=== PATIENT | male | born 1955 | race Caucasian/White ===

== ENCOUNTER 2017-12-06 12:09 | Emergency (ER) | payer SELFPAY ==
[2017-12-06 12:11] VITALS: BP 131/66; PULSE 99; RESP 16; TEMP 35.7; O2SAT 96; BMI 22.4
--- NOTE | 2017-12-06 12:41 | RAD_ITS ---
STUDY: X-RAY - PELVIS AND RIGHT HIP REASON FOR EXAM: Male, 62 years old. One month history of increasing right hip pain. TECHNIQUE: Radiological exam, hip, unilateral, with pelvis when performed; 2 or 3 views. COMPARISON: None. FINDINGS: There is a non-specific bowel gas pattern. Normal visualized soft tissue structures. Normal bilateral iliac wings, sacroiliac joints and visualized sacrum. Normal bilateral superior and inferior pubic rami. Normal pubic symphysis. Normal bilateral ischial tuberosities. Normal visualized femoral head. Normal acetabulum. There is moderate articular joint space narrowing of the hip. RAD/Hip 2-3 Views with Pelvis IMPRESSION: Moderate degree of degenerative changes of the right hip joint. Electronically Signed: Merlin Hudson MD at 13:26 EDT Tel [phone], Service support ,
--- NOTE | 2017-12-06 15:27 | ED.VISSUMM ---
- ER Visit Summary Date of Service: 12/06/17 Chief Complaint: Worsening right proximal anterior thigh pain/hip pain History of Present Illness: The patient is a 62 M has no significant past medical history presents with atraumatic right hip pain that started 1 month ago. He localizes the pain to the inguinal area. He states the pain is significant when he bears weight. He denies any paresthesia, anesthesia or motor weakness. He denies symptoms of claudication. He denies any radicular pain i.e. sciatic or femoral. He denies any bowel or bladder dysfunction. He denies saddle paresthesia or anesthesia. There is no history of steroid use. He denies foot drop. He denies weakness in his thigh muscle going up or down steps. He recently retired and moved from [place] to [place] to be with his daughter. He does not have a physician in the area. He is a smoker. He states he smokes 1 pack per day. He denies fever, chills night sweats. He denies weight loss or weight gain. He denies pain anyplace else. Please read written note for complete detail Physical Examination: Blood pressure slightly related 131/66. HEENT exam unremarkable. Heart is regular without murmur, gallop or rub. Lungs are clear to auscultation. Abdomen is soft nontender no palpable mass or abdominal bruit. He has palpable femoral, DP and PT pulse which are 2+ and symmetric. Straight leg test is negative. He is able to extend his leg without discomfort. Dejon Raúl 4 test was negative for discomfort. EHL is intact. DTR is 3+ symmetric with no clonus or Babinski sign. Test Results: Three-view x-ray of the right hip was obtained which reveals significant arthritis involving the right femoral head. The left hip joint appears normal. Emergency Department Course and Treatment: X-ray was obtained to evaluate for osteoarthritis, avascular necrosis or occult fracture. Treatment Plan: Patient was prescribed NSAID and opiate analgesia for severe pain. He was referred to Dr. Rubin who is on-call for orthopedics. Disposition: Charge to home with daughter and outpatient orthopedic referral Impression: Right hip pain secondary to osteoarthritis/degenerative arthritis right femoral head initial encounter This note was generated with ProcessUnity dictation software. It may contain incorrect words, spelling, and punctuation that were not noted in review of the chart prior to signing ED Disposition - Plan for ED Patient: Disposition: Home or Assisted Living Chief Complaint: Lower Extremity Injury Instructions: ED Degenerative Joint Disease Prescriptions: Hydrocodone Bitart/Apap 5-325 [[place] 5MG-325MG] 1 tab PO Q6H PRN PRN 3 Days #10 tab PRN Reason: Pain Naproxen [Naprosyn] 500 mg PO BID #20 tab Additional Instructions: Call Dr. Rubin's office to be seen in 5-7 days
--- NOTE | 2017-12-06 15:38 | ED.DCSUM_ITS ---
- ER Visit Summary Date of Service: 12/06/17 Chief Complaint: Worsening right proximal anterior thigh pain/hip pain History of Present Illness: The patient is a 62 M has no significant past medical history presents with atraumatic right hip pain that started 1 month ago. He localizes the pain to the inguinal area. He states the pain is significant when he bears weight. He denies any paresthesia, anesthesia or motor weakness. He denies symptoms of claudication. He denies any radicular pain i.e. sciatic or femoral. He denies any bowel or bladder dysfunction. He denies saddle paresthesia or anesthesia. There is no history of steroid use. He denies foot drop. He denies weakness in his thigh muscle going up or down steps. He recently retired and moved from [place] to [place] to be with his daughter. He does not have a physician in the area. He is a smoker. He states he smokes 1 pack per day. He denies fever, chills night sweats. He denies weight loss or weight gain. He denies pain anyplace else. Please read written note for complete detail Physical Examination: Blood pressure slightly related 131/66. HEENT exam unremarkable. Heart is regular without murmur, gallop or rub. Lungs are clear to auscultation. Abdomen is soft nontender no palpable mass or abdominal bruit. He has palpable femoral, DP and PT pulse which are 2+ and symmetric. Straight leg test is negative. He is able to extend his leg without discomfort. Dejon Raúl 4 test was negative for discomfort. EHL is intact. DTR is 3+ symmetric with no clonus or Babinski sign. Test Results: Three-view x-ray of the right hip was obtained which reveals significant arthritis involving the right femoral head. The left hip joint appears normal. Emergency Department Course and Treatment: X-ray was obtained to evaluate for osteoarthritis, avascular necrosis or occult fracture. Treatment Plan: Patient was prescribed NSAID and opiate analgesia for severe pain. He was referred to Dr. Rubin who is on-call for orthopedics. Disposition: Charge to home with daughter and outpatient orthopedic referral Impression: Right hip pain secondary to osteoarthritis/degenerative arthritis right femoral head initial encounter This note was generated with DCITS dictation software. It may contain incorrect words, spelling, and punctuation that were not noted in review of the chart prior to signing ED Disposition - Plan for ED Patient: Disposition: Home or Assisted Living Chief Complaint: Lower Extremity Injury Instructions: ED Degenerative Joint Disease Prescriptions: Hydrocodone Bitart/Apap 5-325 [[place] 5MG-325MG] 1 tab PO Q6H PRN PRN 3 Days #10 tab PRN Reason: Pain Naproxen [Naprosyn] 500 mg PO BID #20 tab Additional Instructions: Call Dr. Rubin's office to be seen in 5-7 days
[2017-12-06 15:52] VITALS: PULSE 88; RESP 14; O2SAT 96
--- NOTE | 2017-12-06 15:55 | CASEMGMT ---
Social Work Note Updated by RNKali, that pt was concerned about payment for orthopedic follow-up. RNMarcel, informed that pt and family were leaving. Introduced self and role at [facility]. Pt's daughter stating that they need to go to cone picker a child from school. Offer to walk out with them. Pt states that he is retired and uninsured. Does have money in his ROBERTO which is what he is living off of. Provided with a Medicaid application and informed if he financially qualifies it would be retroactive 30 days prior to its submission. Also provided with information on [facility] in [place] and [facility] locations with [facility] financial application attached. Pt thanks and denies additional needs at this time. Provided with SW contact information in case questions arise. Tata Frank, GRAIN ELEVATOR MAN, SENIOR PRODUCTION PLANNER
== END 2017-12-06 15:53 | disposition home or self-care (01) ==
PROVIDERS: Emergency Provider Emergency Medicine
DX: M16.11 Unilateral primary osteoarthritis, right hip (principal); M25.551 Pain in right hip; F17.200 Nicotine dependence, unspecified, uncomplicated
CPT/HCPCS: 73502; 99282

== ENCOUNTER → 2018-03-16 15:00 | Outpatient (CLI) | payer SELFPAY ==
--- NOTE | 2018-03-16 | IMM_PTH ---
PATIENT: KAILEY MARINA LOC: PATRIC U#:[id number] AGE/SX: 69/M ROOM: RE03/16/[address]: Dr. Babar Hernández, CHRISTINA : 1955 BED: DIS: SPEC #: [id number] RECD: 03/20/18 09:55 STATUS: FAN REIdalia #: [id number] QUYEN: 03/16/18 00:[address]: Babar Hernández DEPT: IMMUNOHISTOCHEMISTRY RECD BY: Maye Mcginnis ENTERED: 03/20/18 09:58 SP TYPE: IMMUNO OTHR DR: No Primary Care Phys Tissues: Buccal mucosa, NOS Procedures: RCC (add) SMA (add) NAPSIN A (add) CD45 (add) CK20 (add) CK5-6 (add) CK7 (add) CK8 (add) DESMIN (add) HEP PAR (add) PSA (add) TTF1 (add) Pankeratin (add) MELAN-A (add) P40 (add) Vimentin (initial) S-100 (add) PHYSICIAN & [place] [phone] SPECIMEN INFORMATION: Tissue Source: Right cheek Clinical Info: Rule out SCCA Specimen Number: [id number] CPT code: 19541, 13250 x16 METHODOLOGY: Deparaffinized sections of prefer/formalin-fixed tissue or PAP/DQ stained slides are incubated with monoclonal/polyclonal antibodies/oligonucleotide probes. Localization is made via biotin free immunoperoxidase method. Appropriate controls are performed and reacted as expected. Results on target cell population are indicated in the following table: RESULTS: ANTIBODY / CLONE RESULT Vimentin (V9) positive Actin (1A4) negative Desmin (CE-R-11) negative S-100 (4C4.9) negative Melan A (A103) negative AE1-3 (AE1/AE3/PCK26) positive CK7 (OV-TL12/30) negative CK8 (02rikqX96) positive, focal CK20 (KS20.8) negative CD45 (RP2/18) negative TTF-1 (8G7G3/1) negative Napsin A (Rabbit Polyclonal) negative HepPar (OCh1E5) negative RCC (PN-15) negative PSA (ER-PR8) negative CK5-6 (D5 & 1684) negative P40 (BC28) negative These tests were developed and their performance characteristics determined by [facility]. They may not have been cleared or approved by the U.S. Food and Drug Administration. The FDA has determined that such clearance or approval is not necessary. INTERPRETATION: Right cheek lesion, incisional biopsy: Metastatic carcinoma with clear cell features, suggestive of renal cell carcinoma. SJ:wilber 04/04/18 Comment: The specimen was sent to [facility] for expert opinion and reviewed by Dr. Quinn. Additional immunohistochemical stains were also performed at performed at [facility]. IHC favors the above diagnosis. Case has been reviewed in consultation with Dr. Martin who concurs with the above diagnosis. IDC:AM
--- NOTE | 2018-03-16 15:00 | LES_PTH ---
PATIENT: KAILEY MARINA LOC: PATRIC U#:[id number] AGE/SX: 69/M ROOM: RE03/16/[address]: Dr. Babar Hernández DDS : 1955 BED: DIS: SPEC #: [id number] RECD: 03/16/18 15:48 STATUS: FAN SHAUN #: [id number] QUYEN: 03/16/18 15:[address]: Babar Hernández DEPT: SURGICAL PATHOLOGY RECD BY: Maye Mcginnis ENTERED: 03/17/18 14:54 SP TYPE: Lesion OTHR DR: No Primary Care Phys Tissues: Cheek, NOS Procedures: Surgery Specimen Level IV HEADER OPERATION: Biopsy right cheek PRE-OP DIAGNOSIS: Patient states two-week history. This appears very aggressive. Measures 3 cm in diameter. Rule out SCCA TISSUE SUBMITTED: Incisional biopsy right cheek MICROSCOPIC DIAGNOSIS Right cheek lesion, incisional biopsy: Metastatic carcinoma with clear cell features, suggestive of renal cell carcinoma. See comment. KI:wilber 04/04/18 COMMENT The specimen was sent to [facility] for expert opinion and reviewed by Dr. Quinn and the above diagnosis is rendered. The complete report is viewable in patient?s EMR. Immunohistochemistry ([id number]) performed here and additional immunohistochemical stains performed at [facility] supports the above diagnosis. Case has been reviewed in consultation with Dr. Martin who concurs with the above diagnosis. IDC:AM MICROSCOPIC DESCRIPTION Slides are reviewed. GROSS DESCRIPTION Received in fixative is one container labeled with the patient's name and designated buccal cheek right. The specimen consists of two pieces of obrien soft tissue that in aggregate measure 1.5 x 1.2 x 0.3 cm. The entire specimen is submitted in one cassette. / KI:wilber 03/17/18 TC:0 CPT: 88134 ADDENDUM ADDENDUM ADDENDUM ADDENDUM ADDENDUM ADDENDUM ADDENDUM ADDENDUM ADDENDUM ADDENDUM 04/17/2018 10:10 ADDENDUM 04/17/2018 10:10 ADDENDUM 04/17/2018 10:10 ADDENDUM 04/17/2018 10:10 ADDENDUM 04/17/2018 10:10 This addendum is added to incorporate an outside pathology consultation report. The case was examined at [facility] (#[id number]) and the following diagnosis was rendered. Right cheek, biopsy: Carcinoma with clear cell features, consistent with metastatic renal cell carcinoma. Please see complete above mentioned consultation report in EMR
== END ==
PROVIDERS: Visit Provider Dentist Oral and Maxillofacial Surgery
DX: L98.8 Other specified disorders of the skin and subcutaneous tissue (principal)
CPT/HCPCS: 88305; 88341; 88342

== ENCOUNTER 2018-05-04 14:45 | Emergency (ER) | payer MEDICAID, SELFPAY ==
[2018-05-04 14:46] VITALS: BP 117/75; PULSE 127; RESP 18; TEMP 38.3; O2SAT 97
--- NOTE | 2018-05-04 15:40 | ED.VISSUMM ---
- ER Visit Summary Date of Service: 05/04/18 Chief Complaint: Fever History of Present Illness: The patient is a 62 M history of renal CA with metastases to his brain, mouth, lung and bone. Patient states felt very fatigued the last 2 days and had a fever. Runny nose. No shortness of breath. Denies abdominal pain. Denies dysuria. No rashes. Physical Examination: Older male vital signs stable he is febrile 1011 with a heart rate of 127. HEENT exam mucous membranes. He does have a large mouth on the left side roof of his mouth. He also has a swollen lymphadenopathy which is chronic from his cancer. Neck no meningismus. Trachea midline. Lungs clear to auscultation bilaterally. Heart tachycardic no murmur. Abdomen soft nontender. Moving all 4 extremities. Neurologically awake alert no focal motor deficits. Back nontender. Skin unremarkable. Test Results: BC white count of 5. H&H of 13 and 41. And 44,000 platelets. Electrolytes show BUN 28 creatinine 0.9 consistent with mild dehydration. Anion gap is 6. UA was negative except for 1+ bacteria. It was sent for culture. Blood cultures are pending. Chest x-ray read by myself the radiologist shows no acute abnormality. Emergency Department Course and Treatment: Older male with fever and immunosuppressed from renal CA with metastases. Received IV fluids and Tylenol. An infectious workup will be pursued. Treatment Plan: Repeat exam patient is doing well at 2026. Will be discharged to home with fever of uncertain etiology. He will follow up with a local oncologist from the [facility]. He knows return if worse. Disposition: Discharge Impression: Acute fever of uncertain etiology History of known renal CA with extensive metastases. This note was generated with Bitstrips dictation software. It may contain incorrect words, spelling, and punctuation that were not noted in review of the chart prior to signing ED Disposition - Plan for ED Patient: Chief Complaint: Cold Sx Referrals: Care Physician,No Primary [Primary Care Provider] -
[2018-05-04 16:12] LABS: Absolute Lymphocyte Count 0.65 X10^3/ul (0.83-4.51); Absolute Neutrophil Count 4.3 X10^3/uL (2.0-7.7); Basophil# 0.01 X10^3/uL; Basophil% 0.2 % (0-1); Eosinophil# 0.02 X10^3/uL; Eosinophils% 0.4 % (0-5); Hematocrit 41.2 % (40-54); Hemoglobin 13.8 g/dl (13.0-16.5); Lymphocyte # 0.65 X10^3/ul (4.0); Lymphocyte % 11.7 % (19-41); Mean Corp Hgb Conc 33.5 g/gl (32-36); Mean Corpuscular Hgb 30.9 pg (27.0-32.0); Mean Corpuscular Volume 92.2 fL (80-94); Mean Platelet Vol. 10.4 fl (6.2-12.0); Monocyte# 0.53 X10^3/uL; Monocyte% 9.6 % (0-10); Neutrophil % 77.6 % (47-70); Platelet Count 144 K/mm3 (150-450); RBC Distribution Width CV 14.1 % (11.6-14.6); RBC Distribution Width SD 46.4 fl (35.1-43.9); Red Blood Count 4.47 M/mm3 (4.6-6.2); White Blood Count 5.5 K/mm3 (4.4-11.0)
[2018-05-04 16:15] LABS: POSITIVE COUNT NO; POSITIVE DIFFERENTIAL NO; POSITIVE MORPHOLOGY NO
[2018-05-04] MEDS: Acetaminophen 500 MG Tablet 1000 MG PO (16:22)
[2018-05-04] MEDS: 0.9% Normal Saline 1,000 ML 1000 ML IV (16:23)
[2018-05-04 16:33] LABS: Anion Gap 6 (5-15); BUN 28 mg/dL (7-18); BUN/Creat Ratio 29.7 RATIO (10-20); Calcium,Total 10.6 mg/dL (8.5-10.1); Chloride 97 mmol/L (98-107); Creatinine, Serum 0.94 mg/dL (0.70-1.30); EST Glomerular Filtration Rate 86 mL/min (>60); Est Glom Filt Rate - Afr Amer 104 mL/min (>60); Estimated Creatinine Clearance 72.95 ml/min; Glucose 85 mg/dL (74-106); Potassium 4.5 mmol/L (3.5-5.1); Sodium Level 136 mmol/L (136-145)
[2018-05-04 16:55] LABS: Mucous, Urine 0 SEEN /hpf (<or=2+); White Blood Cells 0 SEEN /hpf (0-5)
[2018-05-04 17:20] LABS: Color, Urine Yellow (Yellow); Glucose, Dipstick Normal (Normal); Ketone-Dipstick Negative (Negative); Leukocyte Esterase-Dipstick Negative /ul (Negative); Nitrite-Dipstick Negative (Negative); Occult Blood-Urine 25 /ul (Negative); Protein-Dipstick 30 mg/dl (Negative); Urine Bilirubin Dipstick Negative (Negative); Urine Clarity Clear (Clear); Urine Urobilinogen 4 mg/dl (Normal)
[2018-05-04 17:34] LABS: Bacteria 1+ /hpf (None Seen); Red Blood Cells-Urine 5-10 SEEN /hpf (0-5); Squamous Epithelial Cells - UA 0-5 SEEN /hpf (0-5)
[2018-05-04 19:14] VITALS: BP 110/78; PULSE 105; RESP 14; O2SAT 98
--- NOTE | 2018-05-04 20:30 | ED.DEP ---
ED Disposition - Plan for ED Patient: Disposition: Home or Assisted Living Chief Complaint: Cold Sx Instructions: ED Upper Resp Infec No Abx Tx Referrals: Jos Crzu DO [STAFF PHYSICIAN] - As soon as possible Additional Instructions: Alternate Tylenol and Motrin for fever. Plenty of fluids and rest. Return to the ER if you are feeling worse. Otherwise either follow-up with your oncologist at the [facility] or with Dr. Jos Cruz locally.
--- NOTE | 2018-05-04 20:33 | DCINST.ED_ITS ---
ED Disposition - Plan for ED Patient: Disposition: Home or Assisted Living Chief Complaint: Cold Sx Instructions: ED Upper Resp Infec No Abx Tx Referrals: Jos Cruz DO [STAFF PHYSICIAN] - As soon as possible Additional Instructions: Alternate Tylenol and Motrin for fever. Plenty of fluids and rest. Return to the ER if you are feeling worse. Otherwise either follow-up with your oncologist at the [facility] or with Dr. Jos Cruz locally.
[2018-05-04 21:03] VITALS: PULSE 98; RESP 18; O2SAT 96
== END 2018-05-04 20:50 | disposition home or self-care (01) ==
PROVIDERS: Emergency Provider Emergency Medicine
DX: R50.9 Fever, unspecified (principal); C64.9 Malignant neoplasm of unspecified kidney, except renal pelvis; C78.00 Secondary malignant neoplasm of unspecified lung; C79.51 Secondary malignant neoplasm of bone; C79.89 Secondary malignant neoplasm of other specified sites; Z72.0 Tobacco use; Z79.891 Long term (current) use of opiate analgesic; Z79.899 Other long term (current) drug therapy
CPT/HCPCS: 71046; 80048; 81001; 85025; 87040; 87086; 87088; 96360; 96361; 99284; J7030; A4216

== ENCOUNTER 2018-05-12 07:50 | Emergency (ER) | payer MEDICAID, SELFPAY ==
[2018-05-12 07:50] VITALS: BP 112/68; PULSE 90; RESP 16; TEMP 36.9; O2SAT 93
--- NOTE | 2018-05-12 07:54 | CT_ITS ---
STUDY: CT BRAIN WITHOUT CONTRAST REASON FOR EXAM: Male, 62 years old. History of fall. Right arm weakness. History renal cell carcinoma. RADIATION DOSAGE (If Supplied By Facility): CTDIvol = ( 44.99 ) mGy, DLP = ( 829.85 ) mGycm TECHNIQUE: Transaxial CT imaging of the brain was performed without administration of intravenous contrast material. Individualized dose optimization techniques were used for this CT. COMPARISON: None. FINDINGS: Normal soft tissue structures. Normal calvarium. There is edema involving the medial aspects of the right and left frontal lobes as well as the left parietal occipital lobe and right frontoparietal lobe with mass effect. Focal hypodensity seen along the medial aspect of the right occipital lobe. Findings are in keeping with metastatic disease. A repeat CT scan following IV contrast or MRI scan is recommended for further evaluation. Normal basal ganglia and thalami. Normal brainstem. Normal cerebellum. There is no intracranial hemorrhage. There are no findings of an acute ischemic infarction. Soft tissue opacification and mass of the left maxillary sinus with destruction of the lateral wall of the left maxillary sinus and partial destruction of the medial wall. The mass extends into the left ethmoid sinus. The mass also extends into the inferior aspect of the left temporal fossa with underlying bony destruction. Mucosal thickening of the right maxillary sinus. CT/Brain/Head without Contrast IMPRESSION: Multiple findings as described. Findings suggestive of metastatic disease. A repeat CT scan with IV contrast or MRI is recommended for further evaluation. Electronically Signed: Merlin Hudson MD at 9:21 EDT Tel [phone], Service support ,
--- NOTE | 2018-05-12 07:55 | EKG12_ITS ---
Test Reason : FALL Blood Pressure : / mmHG Vent. Rate : 102 BPM Atrial Rate : 102 BPM P-R Int : 148 ms QRS Dur : 088 ms QT Int : 320 ms P-R-T Axes : 067 022 057 degrees QTc Int : 417 ms Sinus tachycardia Otherwise normal ECG Confirmed by GHANSHYAM JOHNSON, DAGOBERTO ([id number]), research editor VADIM PAREDES ([id number]) on 05/15/2018 3:09:47 PM Referred By: JAZMYNE Confirmed By:DAGOBERTO MORRISSEY MD
--- NOTE | 2018-05-12 07:59 | ED.DCSUM_ITS ---
- ER Visit Summary Date of Service: 05/12/18 Chief Complaint: Fall, weakness History of Present Illness: The patient is a 62 M with history of metastatic renal cell carcinoma presents to the emergency department with fall and weakness. Patient has history of renal cell carcinoma. He has metastasis to the face of the brain. He is currently undergoing therapy through the [facility]. Over the past few days, he has had some increasing numbness in his right arm. Today, he states that his right arm felt clumsy. He was sitting on the toilet. He states that he felt cannot remember the exact circumstances. He did strike his head. He states he did not lose consciousness. He denies any chest pain or shortness of breath. He denies any fevers or chills. He has had no recent infectious symptoms. He denies any recent change in medications. He denies any history of seizure. Physical Examination: Vital signs reviewed General: Thin male who appears older than stated age Head: Normocephalic, superficial abrasions of the forehead bilaterally Eyes: Pupils equal and reactive, extraocular muscles intact Neck, supple, no lymphadenopathy Heart: Regular rate and rhythm Respiratory: No distress, clear bilaterally Abdomen: Soft, nontender, nondistended, no peritoneal signs Back: Nontender Extremities: Nontender, no edema, no cords Skin: Normal color no rash Neuro: Asymmetry of the face, ataxia of the right upper extremity Test Results: [] Emergency Department Course and Treatment: The patient presents with increasing weakness and a fall. He does have asymmetry of his face secondary to mass in the right cheek. He also has a left-sided facial droop, which in discussion with his caregiver is chronic. The patient was just recently discharged from the [facility]. He did have immunotherapy done yesterday and was actually seen by his oncologist. Per his caregiver, he has been increasingly weak since his discharge. He is to the point where he cannot even lift his arms to feed himself or to drink. He had a fall today, but does not think that was syncopal. Given his head injury, I did obtain a noncontrast CT. The patient has multiple metastatic areas with cerebral edema and mass-effect. I did discuss this with his oncologist. He did recommend Decadron which the patient was already given. Given his worsening cerebral edema, ataxia, and multiple falls along with his increasing weakness I do feel that this patient is going to require higher level of care. At discretion of his oncologist, he will be transferred to the [facility] for further evaluation. The patient was accepted by Dr. Alvarez for oncology. He will be transferred to [facility]. Treatment Plan: [] Disposition: Transfer Impression: 1 renal cell carcinoma with brain metastasis 2. Cerebral edema 3. Weakness with falls This note was generated with Arke[employer] dictation software. It may contain incorrect words, spelling, and punctuation that were not noted in review of the chart prior to signing ED Disposition - Plan for ED Patient: Chief Complaint: Fall Referrals: Care Physician,No Primary [Primary Care Provider] -
--- NOTE | 2018-05-12 08:00 | RAD_ITS ---
STUDY: X-RAY CHEST REASON FOR EXAM: Male, 62 years old. Cough. TECHNIQUE: Single AP portable view of the chest. COMPARISON: Comparison is made with prior study dated May 04, 2018. FINDINGS: EKG electrodes are seen. Hyperinflation. No acute abnormality is seen. There is no demonstrated pleural abnormality. Normal size heart. Normal mediastinum and zayda. Normal visualized pulmonary arteries. There is atherosclerotic calcification of the aortic arch with tortuosity. There are diffuse degenerative changes of the visualized thoracic spine. Normal visualized ribs, clavicles, and shoulders. There is no demonstrated abnormality of the visualized soft tissue structures of the upper abdomen. RAD/Chest 1 View (Portable) IMPRESSION: No acute abnormality is seen. Electronically Signed: Merlin Hudson MD at 8:28 EDT Tel [phone], Service support ,
--- NOTE | 2018-05-12 08:01 | NURSING ---
NO OLD EKGS
[2018-05-12 08:37] LABS: Absolute Lymphocyte Count 0.56 X10^3/ul (0.83-4.51); Absolute Neutrophil Count 6.2 X10^3/uL (2.0-7.7); Basophil# 0.01 X10^3/uL; Basophil% 0.1 % (0-1); Differential Indicated SCAN CRITERIA MET; Eosinophil# 0.02 X10^3/uL; Eosinophils% 0.3 % (0-5); Hematocrit 32.6 % (40-54); Hemoglobin 10.7 g/dl (13.0-16.5); Lymphocyte # 0.56 X10^3/ul (4.0); Lymphocyte % 7.7 % (19-41); Mean Corp Hgb Conc 32.8 g/gl (32-36); Mean Corpuscular Hgb 29.5 pg (27.0-32.0); Mean Corpuscular Volume 89.8 fL (80-94); Mean Platelet Vol. 10.3 fl (6.2-12.0); Monocyte% 5.5 % (0-10); Neutrophil # 6.24 X10^3/uL (2.7-7.7); POSITIVE COUNT NO; POSITIVE DIFFERENTIAL YES; POSITIVE MORPHOLOGY NO; Platelet Count 176 K/mm3 (150-450); RBC Distribution Width CV 13.8 % (11.6-14.6); RBC Distribution Width SD 45.4 fl (35.1-43.9); Red Blood Count 3.63 M/mm3 (4.6-6.2); White Blood Count 7.3 K/mm3 (4.4-11.0)
[2018-05-12] MEDS: 0.9% Normal Saline 1,000 ML 1000 ML IV (08:40)
[2018-05-12 08:41] VITALS: BP 108/53; PULSE 94; RESP 20; O2SAT 91
[2018-05-12 08:52] LABS: ALB/GLOB Ratio 0.4 RATIO (0.9-2.4); AST(SGOT) 57 U/L (15-37); Alanine Aminotransfer ALT/SGPT 70 U/L (16-61); Albumin, Serum 1.7 g/dL (3.2-5.0); Alkaline Phosphatase 96 U/L (45-117); Anion Gap 9 (5-15); BUN 10 mg/dL (7-18); BUN/Creat Ratio 13.6 RATIO (10-20); Calcium,Total 9.6 mg/dL (8.5-10.1); Chloride 99 mmol/L (98-107); Creatinine, Serum 0.74 mg/dL (0.70-1.30); EST Glomerular Filtration Rate 114 mL/min (>60); Est Glom Filt Rate - Afr Amer 138 mL/min (>60); Estimated Creatinine Clearance 92.82 ml/min; Globulin 4.3 g/dL (2.2-4.2); Glucose 77 mg/dL (74-106); Potassium 3.4 mmol/L (3.5-5.1); Sodium Level 134 mmol/L (136-145)
--- NOTE | 2018-05-12 09:09 | ED.RN ---
[facility] PT BATTERY MECHANIC CALLED IN. PT GAVE PERMISSION TO SPEAK WITH HER. NO RESULTS YET.
--- NOTE | 2018-05-12 09:18 | NURSING ---
LILIANE RENTERIA FOR DR SAMANO
[2018-05-12 10:04] VITALS: BP 92/83; PULSE 86; RESP 20; O2SAT 95
--- NOTE | 2018-05-12 10:34 | NURSING ---
CALLED [facility] TRANSFER LINE TO INQUIRE ABOUT DR TO TALKED TO PATEL. SHE SAID SHE OR ELICIA WOULD CALL US BACK.
--- NOTE | 2018-05-12 10:57 | NURSING ---
DR BOYKIN FOR DR SAMANO
--- NOTE | 2018-05-12 11:18 | NURSING ---
[facility] [id number] REPORT [phone]
[2018-05-12 12:06] VITALS: BP 101/67; PULSE 85; RESP 14; O2SAT 98
[2018-05-12 12:42] VITALS: BP 105/65; PULSE 85; RESP 14; O2SAT 98
== END 2018-05-12 13:30 | disposition short-term general hospital (02) ==
LOC: ED 08:17
PROVIDERS: Emergency Provider Emergency Medicine
DX: R53.1 Weakness (principal); G93.6 Cerebral edema; C64.9 Malignant neoplasm of unspecified kidney, except renal pelvis; C79.31 Secondary malignant neoplasm of brain; Z79.891 Long term (current) use of opiate analgesic; Z79.899 Other long term (current) drug therapy
CPT/HCPCS: 70450; 71045; 80053; 85025; 93005; 96361; 96374; 99285; J7030; A4216

== ENCOUNTER 2018-06-20 18:47 | Inpatient (IN) | payer MEDICAID, SELFPAY ==
[2018-06-20] VITALS (10 sets, daily range): BP systolic 92–109; BP diastolic 38–55; PULSE 112–136; RESP 18–31; TEMP 36.4–36.9; O2SAT 93–96; BMI 19.9
--- NOTE | 2018-06-20 19:21 | EKG12_ITS ---
Test Reason : ABD PAIN Blood Pressure : / mmHG Vent. Rate : 121 BPM Atrial Rate : 121 BPM P-R Int : 160 ms QRS Dur : 084 ms QT Int : 284 ms P-R-T Axes : 058 018 055 degrees QTc Int : 403 ms Sinus tachycardia Low voltage QRS (limb leads) Confirmed by GREGORY JOHNSON, JAQUAN ([id number]), deputy editor in chief VADIM PAREDES ([id number]) on 06/23/2018 1:13:05 PM Referred By: PEPE Confirmed By:JAQUAN JENKINS MD
[2018-06-20] MEDS: 0.9% Normal Saline 1,000 ML 1000 ML IV ×3 (19:24→21:52)
--- NOTE | 2018-06-20 19:30 | RAD_ITS ---
STUDY: X-RAY CHEST REASON FOR EXAM: Male, 62 years old. Cough, shortness of breath TECHNIQUE: Frontal and lateral views of the chest were obtained. COMPARISON: May 12, 2018 and May 04, 2018 FINDINGS: The lungs are hyperinflated. There are minimal patchy airspace opacities in both lung bases. There is an indeterminate nodular opacity measuring almost 3.6 cm in size adjacent to the left hilum on the frontal view. There is an indeterminate nodular opacity in the anterior lungs on the lateral view, possibly in the right upper lobe. There are a few small nodular opacities in the mid left lung measuring up to 1 cm in size. There is no demonstrated pleural abnormality. The cardiac silhouette is normal in size. The mediastinum and hilar regions are unremarkable. Normal visualized pulmonary arteries. Normal visualized aortic arch and descending thoracic aorta. There are diffuse degenerative changes of the visualized spine. The visualized ribs, clavicles, and shoulders are unremarkable. There is no demonstrated abnormality of the visualized upper abdomen. RAD/Chest PA and Lateral IMPRESSION: Bibasilar opacities likely represent atelectasis, although early consolidations cannot be excluded. There is no obvious effusion. There are indeterminate nodular opacities in the left lung adjacent to the hilum, in the mid left lung, and possibly in the right upper lung. A CT of the chest is recommended for further characterization. Electronically Signed: Romelia Castellon MD at 20:05 EDT Tel Direct: [phone], Service support ,
[2018-06-20 19:41] LABS: Hematocrit 33.7 % (40-54); Hemoglobin 10.8 g/dl (13.0-16.5); Mean Corpuscular Hgb 29.8 pg (27.0-32.0); Mean Corpuscular Volume 93.1 fL (80-94); Mean Platelet Vol. 9.9 fl (6.2-12.0); Platelet Count 122 K/mm3 (150-450); RBC Distribution Width CV 17.4 % (11.6-14.6); RBC Distribution Width SD 59.2 fl (35.1-43.9); Red Blood Count 3.62 M/mm3 (4.6-6.2); White Blood Count 7.8 K/mm3 (4.4-11.0)
[2018-06-20 19:42] LABS: POSITIVE COUNT YES; POSITIVE DIFFERENTIAL NO; POSITIVE MORPHOLOGY YES
[2018-06-20 19:43] LABS: Differential Indicated MANUAL DIFF
[2018-06-20 19:50] LABS: Anion Gap 10 (5-15); BUN 32 mg/dL (7-18); BUN/Creat Ratio 23.5 RATIO (10-20); Chloride 99 mmol/L (98-107); Creatinine, Serum 1.36 mg/dL (0.70-1.30); EST Glomerular Filtration Rate 56 mL/min (>60); Est Glom Filt Rate - Afr Amer 68 mL/min (>60); Estimated Creatinine Clearance 48.78 ml/min; Glucose 104 mg/dL (74-106); Potassium 4.2 mmol/L (3.5-5.1); Sodium Level 132 mmol/L (136-145)
[2018-06-20 20:13] LABS: Lactic Acid 3.7 mmol/L (0.4-2.0)
--- NOTE | 2018-06-20 20:23 | ED.RN ---
CRITICAL VALUE LACTIC ACID CALLED FROM LAB OF 3.6
[2018-06-20 20:28] LABS: Absolute Lymphocyte Count 1.71 X10^3/ul (0.83-4.51); Absolute Neutrophil Count 5.6 X10^3/uL (2.0-7.7); Metamyelocyte 2 % (0-1); Neutrophil-Band 13 % (0-5); Neutrophil-Segmented 59 % (47-70)
[2018-06-20 20:29] LABS: Lymphocyte 22 % (19-41); Monocyte 3 % (0-10); Myelocyte 1 (0-0)
[2018-06-20 20:30] LABS: Anisocytosis RARE; Macrocytosis RARE; Platelet Estimate SLT DEC (ADEQ)
[2018-06-20 20:32] LABS: Total Cells Counted 100 (MANUAL DIFF)
--- NOTE | 2018-06-20 21:15 | NURSING ---
pt assisted to the side to give urine sample. attempt was unsuccessful.
[2018-06-20] MEDS: Ceftriaxone 1 GM/50 ML BAG IV (22:26)
--- NOTE | 2018-06-20 22:39 | PCM.HP.STD ---
Problem List (1) Septic shock Status: Acute (2) HCAP (healthcare-associated pneumonia) Status: Acute (3) Metastatic renal cell carcinoma Status: Chronic Qualifiers: Laterality: unspecified laterality Qualified Code(s): C64.9 - Malignant neoplasm of unspecified kidney, except renal pelvis (4) GERD (gastroesophageal reflux disease) Status: Chronic Qualifiers: Esophagitis presence: esophagitis presence not specified Qualified Code(s): K21.9 - Gastro-esophageal reflux disease without esophagitis (5) Chronic pain syndrome Status: Chronic (6) Former tobacco use Status: Chronic (7) Insomnia Status: Chronic Qualifiers: Insomnia type: unspecified Qualified Code(s): G47.00 - Insomnia, unspecified (8) Anemia Status: Chronic Qualifiers: Anemia type: unspecified type Qualified Code(s): D64.9 - Anemia, unspecified History of Present Illness Date of Admission: 06/20/18 Chief Complaint: Dyspnea, cough, weakness The patient is a 62 y/o M w/ PMHx: GERD, Insomnia, Chronic Pain Syndrome, Former Tobacco use who presents to the [facility] ED on 06/20/18 with history of Stage IV metastatic Renal Cell Carcinoma following w/ Oncology at [facility] on chemotherapy, last given 3 weeks prior w/ planned upcoming regimen, GERD, Insomnia, Former Tobacco Use, Chronic Pain Syndrome who presents to the [facility] on 06/21/18 with history of progressively worsening dyspnea, weakness, malaise, non-productive cough x 2 days. In the ED work-up included T 97.5, heart rate 136, BP 92/38, respiratory rate 18--> 29, 96% on room air, CBC with WBC 7.8, hgb 10.8 (05/04/18 Hgb 13.8-->05/12/18 Hgb 10.7), platelet 122 with left shift, BMP with sodium 132, BUN/creatinine 32/1.36 (baseline Cr 0.7-0.9), glucose 104, lactic acid 3.7, blood culture x2 obtained per ED CXR w/ bibasilar opacities with indeterminate nodular opacities in the left lung adjacent to the hilum in the mid left lung and possibly in the right upper lung. In the ED patient administered normal saline, IV famotidine as well as IV Rocephin. In the ED despite being administered 3L NS (30 mg/kg sepsis bolus) he continued to have MAP < 65. Discussed with ED physician and R SC central line placed for possible pressor needs and patient transitioned to the ICU. Past Medical History Past Medical History (Chronic Problems): Chronic Problems Metastatic renal cell carcinoma (Chronic) GERD (gastroesophageal reflux disease) (Chronic) Chronic pain syndrome (Chronic) Former tobacco use (Chronic) Insomnia (Chronic) Anemia (Chronic) Allergies No Known Allergies Allergy (Verified 06/20/18 19:04) Home Medications: Ambulatory Orders Medication Instructions Recorded Famotidine [Pepcid] 20 mg PO DAILY 05/04/18 Oxycodone HCl/Acetaminophen 1 tab PO Q4H PRN PRN 05/04/18 [Percocet 5-325] Mirtazapine [Remeron] 15 mg PO PRN PRN 05/12/18 Surgical History: no surgical history Psychiatric History: Anxiety Lives: - - Patient lives with his caregiver. Smoking Status: Former smoker - Quit cigarette tobacco usage ~ 1 month prior, 1 ppd since youth prior to this. Tobacco Use: Non-smoker Alcohol: None Drugs: None - *Family History Maternal History Items: - - Mother with a history of ALS. Paternal History Items: - - Mother with history of bladder cancer. Review of Systems Constitutional: Reports: Anorexia, Malaise, Weakness, Fatigue. Denies: Chills, Fever, Weight Change HEENT: Denies: Head Aches, Sinus Congestion, Sinus Drainage Cardiovascular: Denies: Chest Pain, Palpitations Respiratory: Reports: Cough, Shortness of Breath, Shortness of breath at rest, Shortness of breath upon exertion, Sputum production Gastrointestinal: Denies: Abdominal Pain, Nausea, Vomiting Genitourinary: Denies: Dysuria Musculoskeletal: Denies: Joint Pain, Joint Tenderness Skin: Denies: Rash, Wounds Neurological: Denies: Numbness, Tingling, Focal weakness Psychiatric: Reports: Anxiety. Denies: Depression, Homicidal Ideations, Suicidal Ideations Hematologic/ Lymphatic: Reports: Anemia. Denies: Easy Bruising, Easy Bleeding VTE Information - Inpt Only VTE Present on Admission: No VTE Mechan Device Prophylaxis: SCD's VTE Pharm Prophylaxis ordered?: Yes Patient Problems: Active and Suspected Problems HCAP (healthcare-associated pneumonia) (Acute) Septic shock (Acute) Subjective: Seated upright in the ED bed, fatigued appearing, ill appearing, remains hypotensive, tachycardic on monitor. Objective: Physical Examination: General: awake, alert, oriented x 3 and cooperative, seated upright in the ED bed, ill appearing. Skin: normal color, turgor, no icterus, cyanosis. HEENT: AT/NC, EOMI, PERRLA, dry MM, R jaw enlargement secondary to metastatic cancer, no carotid bruits or JVD noted. Lungs: BL, L>R diminished severely, poor effort, cough w/ increased effort, no rales, ronchi or wheezing. Heart: Tachycardic with regular rhythm; no gallop, rub audible. Abdomen: soft, thin cachetic habitus, NTTP, ND, normal BS, no HSM. Extremities: no cyanosis, clubbing, or edema. Neurological: patient awake, alert, oriented x 3; cognitive function intact; pupils equally reactive to light and accomodation; cranial nerves II-XII grossly normal, moving all 4 extremities, no focal deficits, strength severely globally decreased. Psychiatric: affect appears fatigued, flat, no acute evidence of depressive or anxiety feelings. - Physical Exam Vital Signs Temp Pulse Resp BP Pulse Ox 98.4 F 134 H 27 H 121/55 H 93 06/20/18 19:03 06/21/18 00:20 06/21/18 00:20 06/21/18 00:20 06/21/18 00:20 Oxygen Delivery Method Room Air Weight: 135 lb Body Mass Index (BMI) 19.9 Laboratory Tests Past 24 Hrs 06/20/18 06/20/18 06/20/18 19:20 19:20 19:20 WBC 7.8 RBC 3.62 L Hgb 10.8 L Hct 33.7 L MCV 93.1 MCH 29.8 MCHC 32.0 RDW 17.4 H RDW Differential 59.2 H Plt Count 122 L MPV 9.9 Neut % (Auto) Not Reportable Absolute Neuts (auto) 5.6 Absolute Lymphs (auto) 1.71 Total Counted 100 Neutrophils % (Manual) 59 Band Neutrophils % 13 H Lymphocytes % (Manual) 22 Monocytes % (Manual) 3 Metamyelocytes % 2 H Myelocytes % 1 H Diff Path Review May foll Platelet Estimate SLT DEC Anisocytosis RARE Macrocytosis RARE Sodium 132 L Potassium 4.2 Chloride 99 Carbon Dioxide 23.0 Anion Gap 10 BUN 32 H Creatinine 1.36 H Estim Creat Clear Calc 48.78 Est GFR (MDRD) Af Amer 68 Est GFR (MDRD) Non-Af 56 L BUN/Creatinine Ratio 23.5 H Glucose 104 Lactic Acid 3.7 H Calcium 9.0 Urine Color Urine Clarity Urine pH Ur Specific Bridger Urine Protein Urine Glucose (UA) Urine Ketones Urine Occult Blood Urine Nitrite Urine Bilirubin Urine Urobilinogen Ur Leukocyte Esterase Urine RBC Urine WBC Ur Squamous Epith Cells Amorphous Sediment Urine Bacteria Urine Mucus 06/20/18 06/20/18 22:23 23:47 WBC RBC Hgb Hct MCV MCH MCHC RDW RDW Differential Plt Count MPV Neut % (Auto) Absolute Neuts (auto) Absolute Lymphs (auto) Total Counted Neutrophils % (Manual) Band Neutrophils % Lymphocytes % (Manual) Monocytes % (Manual) Metamyelocytes % Myelocytes % Diff Path Review Platelet Estimate Anisocytosis Macrocytosis Sodium Potassium Chloride Carbon Dioxide Anion Gap BUN Creatinine Estim Creat Clear Calc Est GFR (MDRD) Af Amer Est GFR (MDRD) Non-Af BUN/Creatinine Ratio Glucose Lactic Acid 2.2 H Calcium Urine Color Yellow Urine Clarity Clear Urine pH 5.0 Ur Specific Bridger 1.015 Urine Protein 30 H Urine Glucose (UA) Normal Urine Ketones 5 H Urine Occult Blood 10 H Urine Nitrite Negative Urine Bilirubin 1 H Urine Urobilinogen 1 H Ur Leukocyte Esterase 25 H Urine RBC 0 SEEN Urine WBC 0-5 SEEN Ur Squamous Epith Cells 0 SEEN Amorphous Sediment 1+ Urine Bacteria 0 SEEN Urine Mucus 0 SEEN Assessment/Plan All Active Problems HCAP (healthcare-associated pneumonia) (Acute) Septic shock (Acute) The patient is a 62 y/o M w/ PMHx: GERD, Insomnia, Chronic Pain Syndrome, Former Tobacco use who presents to the [facility] ED on 06/20/18 with history of Stage IV metastatic Renal Cell Carcinoma following w/ [facility] on chemotherapy, last given 3 weeks prior w/ planned upcoming regimen, GERD, Insomnia, Former Tobacco Use, Chronic Pain Syndrome who presents to the [facility] on 06/21/18 with history of progressively worsening dyspnea, weakness, malaise, non-productive cough x 2 days. (1) Acute Septic Shock secondary to suspected Pneumonia, Possible GN Organism, Consider HCAP: Evidence of sepsis-induced organ dysfunction/tissue hypoperfusion as evidenced by hypotension despite aggressive 30 mg/kg sepsis administration, JESSICA, elevated LA. Will admit patient to the ICU, maintain on cardiac monitoring, continue IVF bolus per protocol (30 ml/kg within 3 hours of initial severe sepsis presentation), maintain on IV abx regimen w/ vanc and zosyn, administer IV vasopressor therapy for persistent hypotension if not improved following addition 1L NS w/ R SC centra line in place per ED. Will obtain UA, UCx, Sputum Cx, Urinary antigens, Respiratory Viral Panel. ICU physician consulted. (2) Acute kidney injury: Secondary to acute presentation, #1. Admission BUN/Cr 32/1.36, prior baseline creatinine noted to be 0.7-0.9. Will hydrate, hold nephrotoxic medications and repeat chemistry in AM. If no improvement would plan FeNa assessment. (3) Normocytic Anemia, Chronic: Admission Hgb 10.8, likely decreased from prior noted w/ chemotherapy, repeat CBC in AM. (4) Stage IV metastatic Renal Cell Carcinoma: Known metastatic disease including to lung, brain, bone (L hip, jaw), following w/ [facility]cology [facility], most recent chemotherapy ~ 3 weeks prior, due in ~ 3 days, given presentation would need hold, obtain mag and phos levels. (5) Severe Protein-Calorie Malnutrition: Evidenced per BMI and habitus, nutrition consulted. (6) GERD: PPI. (7) Chronic Pain Syndrome: Continue home PRN pain regimen. (8) Insomnia: Continue home PRN regimen if BP improves. (9) DVT Prophylaxis: SCDs, lovenox. (10) CODE status: Discussed CODE status at length including difference between FULL code, DNR-CCA and DNR-CC status w/ patient and his long term care pharmacist who is also his HCPOA. He does having living will in place with very specific directions. Following discussions about the differences in these status, requested FULL CODE status but per his living will and confirmed per HCPOA he is to undergo ONLY 1 ROUND ACLS and if no MANUELA then to transition to DNR-CC status. Advanced Care Planning Face to Face Time: 18 minutes. Code Visit Inpatient E&M: 95797 Init Hosp L3 Procedures: 11004 Advncd Care Plan 30 Min
--- NOTE | 2018-06-20 22:48 | ED.VISSUMM ---
- ER Visit Summary Date of Service: 06/20/18 Chief Complaint: Nausea vomiting, orthostatic symptoms, nonproductive cough, generalized weakness History of Present Illness: The patient is a 62 M with history of metastatic renal carcinoma. Last chemotherapy 3 weeks ago. He complains of chills weakness decreased p.o. intake. He states he is mouth is dry and he is thirsty. He denies orthopnea or PND. He denies chest pain. He does complain of vague abdominal pain. He denies urine output today. He has not had a bowel movement since yesterday. He denies any skin lesions. His oncologist is through the [facility]. He is scheduled for chemotherapy later this week. Physical Examination: Vital signs are abnormal and he is hypotensive. He is tachycardic and tachypneic. HEENT exam is remarkable for palpable masses secondary to metastatic cancer. Tongue and mucosa are dry. Sclerae not injected or icteric. Conjunctive is pink. Heart is rapid and regular without murmur, gallop or rub lungs are clear to auscultation with fair move air bilaterally. Abdomen soft nontender bowel sounds present normal. There is no CVA tenderness. Lower extremity exam reveals no swelling, discoloration, leg vein distention, palpable coarseness on the diffusion deep venous system. Skin appears slightly pale. He is alert oriented. Neuro was nonfocal. Test Results: EKG revealed a sinus tachycardia rate of 121 with normal MD interval, QRS duration and QT interval. There is motion artifact noted. Chest x-ray reveals no infiltrate with metastatic disease. Cardiac silhouette is normal. Mediastinum reveals hilar lymphadenopathy most likely secondary to metastatic disease. There is no metastases to bones noted. Radiologist mentions possible bibasilar opacifications which may represent atelectasis. Doubt this is pneumonia. White count is normal at 10.8 thousand however there are 13 bands with myelocytes and metamyelocytes. BUN and creatinine are elevated 30-1.36. Lactate elevated 3.7. UA is pending. Emergency Department Course and Treatment: Since patient is hypotensive he received 1 L of normal saline. Clinically he is dehydrated. Since he had chemotherapy 3 weeks ago will obtain blood work looking for metabolic infectious etiology of his symptoms. Because he complains of cough and shortness of breath chest x-ray was obtained. Treatment Plan: Patient's blood pressure has improved slightly. He is on his third liter of normal saline. Because there is a shift even though his white count is normal he received 1 g of Rocephin. Blood cultures were obtained. Hospitalist was paged for admission. Disposition: Admit PCU Impression: 1. Hypotension 2. Sinus tachycardia documented on monitor 3. Dyspnea of unknown etiology 4. Lactic acidosis 5. SIRS 6. Stage IV metastatic renal carcinoma 7. Prerenal azotemia with acute kidney injury This note was generated with [employer] dictation software. It may contain incorrect words, spelling, and punctuation that were not noted in review of the chart prior to signing ED Disposition - Plan for ED Patient: Chief Complaint: Abd Pain Referrals: Care Physician,No Primary [Primary Care Provider] -
--- NOTE | 2018-06-20 22:53 | ED.DCSUM_ITS ---
- ER Visit Summary Date of Service: 06/20/18 Chief Complaint: Nausea vomiting, orthostatic symptoms, nonproductive cough, generalized weakness History of Present Illness: The patient is a 62 M with history of metastatic renal carcinoma. Last chemotherapy 3 weeks ago. He complains of chills weakness decreased p.o. intake. He states he is mouth is dry and he is thirsty. He denies orthopnea or PND. He denies chest pain. He does complain of vague abdominal pain. He denies urine output today. He has not had a bowel movement since yesterday. He denies any skin lesions. His oncologist is through the [facility]. He is scheduled for chemotherapy later this week. Physical Examination: Vital signs are abnormal and he is hypotensive. He is tachycardic and tachypneic. HEENT exam is remarkable for palpable masses secondary to metastatic cancer. Tongue and mucosa are dry. Sclerae not injected or icteric. Conjunctive is pink. Heart is rapid and regular without murmur, gallop or rub lungs are clear to auscultation with fair move air bilaterally. Abdomen soft nontender bowel sounds present normal. There is no CVA tenderness. Lower extremity exam reveals no swelling, discoloration, leg vein distention, palpable coarseness on the diffusion deep venous system. Skin appears slightly pale. He is alert oriented. Neuro was nonfocal. Test Results: EKG revealed a sinus tachycardia rate of 121 with normal [place] interval, QRS duration and QT interval. There is motion artifact noted. Chest x-ray reveals no infiltrate with metastatic disease. Cardiac silhouette is normal. Mediastinum reveals hilar lymphadenopathy most likely secondary to metastatic disease. There is no metastases to bones noted. Radiologist mentions possible bibasilar opacifications which may represent atelectasis. Doubt this is pneumonia. White count is normal at 10.8 thousand however there are 13 bands with myelocytes and metamyelocytes. BUN and creatinine are elevated 30-1.36. Lactate elevated 3.7. UA is pending. Emergency Department Course and Treatment: Since patient is hypotensive he received 1 L of normal saline. Clinically he is dehydrated. Since he had chemotherapy 3 weeks ago will obtain blood work looking for metabolic infectious etiology of his symptoms. Because he complains of cough and shortness of breath chest x-ray was obtained. Treatment Plan: Patient's blood pressure has improved slightly. He is on his third liter of normal saline. Because there is a shift even though his white count is normal he received 1 g of Rocephin. Blood cultures were obtained. Hospitalist was paged for admission. Disposition: Admit PCU Impression: 1. Hypotension 2. Sinus tachycardia documented on monitor 3. Dyspnea of unknown etiology 4. Lactic acidosis 5. SIRS 6. Stage IV metastatic renal carcinoma 7. Prerenal azotemia with acute kidney injury This note was generated with [employer] dictation software. It may contain incorrect words, spelling, and punctuation that were not noted in review of the chart prior to signing ED Disposition - Plan for ED Patient: Chief Complaint: Abd Pain Referrals: Care Physician,No Primary [Primary Care Provider] -
--- NOTE | 2018-06-20 22:55 | HP.PCM_ITS ---
<Hays,Manjit - Last Filed: 06/20/18 23:33> History of Present Illness The patient is a 62 year old M [] Past Medical History Past Medical History (Chronic Problems): Chronic Problems Metastatic renal cell carcinoma (Chronic) GERD (gastroesophageal reflux disease) (Chronic) Chronic pain syndrome (Chronic) Former tobacco use (Chronic) Insomnia (Chronic) Anemia (Chronic) Allergies No Known Allergies Allergy (Verified 06/20/18 19:04) Home Medications: Ambulatory Orders Medication Instructions Recorded Famotidine [Pepcid] 20 mg PO DAILY 05/04/18 Oxycodone HCl/Acetaminophen 1 tab PO Q4H PRN PRN 05/04/18 [Percocet 5-325] Mirtazapine [Remeron] 15 mg PO PRN PRN 05/12/18 Patient Problems: Active and Suspected Problems HCAP (healthcare-associated pneumonia) (Acute) Septic shock (Acute) - Physical Exam Vital Signs Temp Pulse Resp BP Pulse Ox 98.4 F 123 H 28 H 109/43 L 93 06/20/18 19:03 06/20/18 23:07 06/20/18 23:07 06/20/18 23:07 06/20/18 23:07 Oxygen Delivery Method Room Air Weight: 61.235 kg Body Mass Index (BMI) 19.9 Laboratory Tests Past 24 Hrs 06/20/18 06/20/18 06/20/18 19:20 19:20 19:20 WBC 7.8 RBC 3.62 L Hgb 10.8 L Hct 33.7 L MCV 93.1 MCH 29.8 MCHC 32.0 RDW 17.4 H RDW Differential 59.2 H Plt Count 122 L MPV 9.9 Neut % (Auto) Not Reportable Absolute Neuts (auto) 5.6 Absolute Lymphs (auto) 1.71 Total Counted 100 Neutrophils % (Manual) 59 Band Neutrophils % 13 H Lymphocytes % (Manual) 22 Monocytes % (Manual) 3 Metamyelocytes % 2 H Myelocytes % 1 H Diff Path Review May foll Platelet Estimate SLT DEC Anisocytosis RARE Macrocytosis RARE Sodium 132 L Potassium 4.2 Chloride 99 Carbon Dioxide 23.0 Anion Gap 10 BUN 32 H Creatinine 1.36 H Estim Creat Clear Calc 48.78 Est GFR (MDRD) Af Amer 68 Est GFR (MDRD) Non-Af 56 L BUN/Creatinine Ratio 23.5 H Glucose 104 Lactic Acid 3.7 H Calcium 9.0 06/20/18 22:23 WBC RBC Hgb Hct MCV MCH MCHC RDW RDW Differential Plt Count MPV Neut % (Auto) Absolute Neuts (auto) Absolute Lymphs (auto) Total Counted Neutrophils % (Manual) Band Neutrophils % Lymphocytes % (Manual) Monocytes % (Manual) Metamyelocytes % Myelocytes % Diff Path Review Platelet Estimate Anisocytosis Macrocytosis Sodium Potassium Chloride Carbon Dioxide Anion Gap BUN Creatinine Estim Creat Clear Calc Est GFR (MDRD) Af Amer Est GFR (MDRD) Non-Af BUN/Creatinine Ratio Glucose Lactic Acid 2.2 H Calcium Assessment/Plan All Active Problems HCAP (healthcare-associated pneumonia) (Acute) Septic shock (Acute) <White,Natalie L - Last Filed: 06/21/18 00:27> Problem List (1) Septic shock Status: Acute (2) HCAP (healthcare-associated pneumonia) Status: Acute (3) Metastatic renal cell carcinoma Status: Chronic Qualifiers: Laterality: unspecified laterality Qualified Code(s): C64.9 - Malignant neoplasm of unspecified kidney, except renal pelvis (4) GERD (gastroesophageal reflux disease) Status: Chronic Qualifiers: Esophagitis presence: esophagitis presence not specified Qualified Code(s): K21.9 - Gastro-esophageal reflux disease without esophagitis (5) Chronic pain syndrome Status: Chronic (6) Former tobacco use Status: Chronic (7) Insomnia Status: Chronic Qualifiers: Insomnia type: unspecified Qualified Code(s): G47.00 - Insomnia, unspecified (8) Anemia Status: Chronic Qualifiers: Anemia type: unspecified type Qualified Code(s): D64.9 - Anemia, unspecified History of Present Illness Date of Admission: 06/20/18 Chief Complaint: Dyspnea, cough, weakness The patient is a 62 y/o M w/ PMHx: GERD, Insomnia, Chronic Pain Syndrome, Former Tobacco use who presents to the [facility] ED on 06/20/18 with history of Stage IV metastatic Renal Cell Carcinoma following w/ [facility] chemotherapy, last given 3 weeks prior w/ planned upcoming regimen, GERD, Insom karlene, Former Tobacco Use, Chronic Pain Syndrome who presents to the [facility] on 06/21/18 with history of progressively worsening dyspnea, weakness, malaise, non-productive cough x 2 days. In the ED work-up included T 97.5, heart rate 136, BP 92/38, respiratory rate 18--> 29, 96% on room air, CBC with WBC 7.8, hgb 10.8 (05/04/18 Hgb 13.8-->05/12/18 Hgb 10.7), platelet 122 with left shift, BMP with sodium 132, BUN/creatinine 32/1.36 (baseline Cr 0.7-0.9), glucose 104, lactic acid 3.7, blood culture x2 obtained per ED CXR w/ bibasilar opacities with indeterminate nodular opacities in the left lung adjacent to the hilum in the mid left lung and possibly in the right upper lung. In the ED patient administered normal saline, IV famotidine as well as IV Rocephin. In the ED despite being administered 3L NS (30 mg/kg sepsis bolus) he continued to have MAP < 65. Discussed with ED physician and R SC central line placed for possible pressor needs and patient transitioned to the ICU. Past Medical History Allergies No Known Allergies Allergy (Verified 06/20/18 19:04) Psychiatric History: Anxiety Lives: - - Patient lives with his caregiver. Smoking Status: Former smoker - Quit cigarette tobacco usage ~ 1 month prior, 1 ppd since youth prior to this. Tobacco Use: Non-smoker Alcohol: None Drugs: None - *Family History Maternal History Items: - - Mother with a history of ALS. Paternal History Items: - - Mother with history of bladder cancer. Review of Systems Constitutional: Reports: Anorexia, Malaise, Weakness, Fatigue. Denies: Chills, Fever, Weight Change HEENT: Denies: Head Aches, Sinus Congestion, Sinus Drainage Cardiovascular: Denies: Chest Pain, Palpitations Respiratory: Reports: Cough, Shortness of Breath, Shortness of breath at rest, Shortness of breath upon exertion, Sputum production Gastrointestinal: Denies: Abdominal Pain, Nausea, Vomiting Genitourinary: Denies: Dysuria Musculoskeletal: Denies: Joint Pain, Joint Tenderness Skin: Denies: Rash, Wounds Neurological: Denies: Numbness, Tingling, Focal weakness Psychiatric: Denies: Anxiety, Depression, Homicidal Ideations, Suicidal Ideations Hematologic/ Lymphatic: Reports: Anemia. Denies: Easy Bruising, Easy Bleeding VTE Information - Inpt Only VTE Present on Admission: No VTE Mechan Device Prophylaxis: SCD's VTE Pharm Prophylaxis ordered?: Yes Subjective: Seated upright in the ED bed, fatigued appearing, ill appearing, remains hypotensive, tachycardic on monitor. Objective: Physical Examination: General: awake, alert, oriented x 3 and cooperative, seated upright in the ED bed, ill appearing. Skin: normal color, turgor, no icterus, cyanosis. HEENT: AT/NC, EOMI, PERRLA, dry MM, R jaw enlargement secondary to metastatic cancer, no carotid bruits or JVD noted. Lungs: BL, L>R diminished severely, poor effort, cough w/ increased effort, no rales, ronchi or wheezing. Heart: Tachycardic with regular rhythm; no gallop, rub audible. Abdomen: soft, thin cachetic habitus, NTTP, ND, normal BS, no HSM. Extremities: no cyanosis, clubbing, or edema. Neurological: patient awake, alert, oriented x 3; cognitive function intact; pupils equally reactive to light and accomodation; cranial nerves II-XII grossly normal, moving all 4 extremities, no focal deficits, strength severely globally decreased. Psychiatric: affect appears fatigued, flat, no acute evidence of depressive or anxiety feelings. - Physical Exam Vital Signs Temp Pulse Resp BP Pulse Ox 98.4 F 114 H 29 H 97/52 L 93 06/20/18 19:03 06/20/18 22:23 06/20/18 22:23 06/20/18 22:23 06/20/18 22:23 Oxygen Delivery Method Room Air Weight: 135 lb Body Mass Index (BMI) 19.9 Laboratory Tests Past 24 Hrs 06/20/18 06/20/18 06/20/18 19:20 19:20 19:20 WBC 7.8 RBC 3.62 L Hgb 10.8 L Hct 33.7 L MCV 93.1 MCH 29.8 MCHC 32.0 RDW 17.4 H RDW Differential 59.2 H Plt Count 122 L MPV 9.9 Neut % (Auto) Not Reportable Absolute Neuts (auto) 5.6 Absolute Lymphs (auto) 1.71 Total Counted 100 Neutrophils % (Manual) 59 Band Neutrophils % 13 H Lymphocytes % (Manual) 22 Monocytes % (Manual) 3 Metamyelocytes % 2 H Myelocytes % 1 H Diff Path Review May foll Platelet Estimate SLT DEC Anisocytosis RARE Macrocytosis RARE Sodium 132 L Potassium 4.2 Chloride 99 Carbon Dioxide 23.0 Anion Gap 10 BUN 32 H Creatinine 1.36 H Estim Creat Clear Calc 48.78 Est GFR (MDRD) Af Amer 68 Est GFR (MDRD) Non-Af 56 L BUN/Creatinine Ratio 23.5 H Glucose 104 Lactic Acid 3.7 H Calcium 9.0 Assessment/Plan The patient is a 62 y/o M w/ PMHx: GERD, Insomnia, Chronic Pain Syndrome, Former Tobacco use who presents to the [facility] ED on 06/20/18 with history of Stage IV metastatic Renal Cell Carcinoma following w/ Oncology at [facility] on chemotherapy, last given 3 weeks prior w/ planned upcoming regimen, GERD, Insomnia, Former Tobacco Use, Chronic Pain Syndrome who presents to the [facility] on 06/21/18 with history of progressively worsening dyspnea, weakness, malaise, non-productive cough x 2 days. (1) Acute Septic Shock secondary to suspected Pneumonia, Possible GN Organism, Consider HCAP: Evidence of sepsis-induced organ dysfunction/tissue hypoperfusion as evidenced by hypotension despite aggressive 30 mg/kg sepsis administration, JESSICA, elevated LA. Will admit patient to the ICU, maintain on cardiac monitoring, continue IVF bolus per protocol (30 ml/kg within 3 hours of initial severe sepsis presentation), maintain on IV abx regimen w/ vanc and zosyn, administer IV vasopressor therapy for persistent hypotension if not improved following addition 1L NS w/ R SC centra line in place per ED. Will obtain UA, UCx, Sputum Cx, Urinary antigens, Respiratory Viral Panel. ICU physician consulted. (2) Acute kidney injury: Secondary to acute presentation, #1. Admission BUN/Cr 32/1.36, prior baseline creatinine noted to be 0.7-0.9. Will hydrate, hold nephrotoxic medications and repeat chemistry in AM. If no improvement would plan FeNa assessment. (3) Normocytic Anemia, Chronic: Admission Hgb 10.8, likely decreased from prior noted w/ chemotherapy, repeat CBC in AM. (4) Stage IV metastatic Renal Cell Carcinoma: Known metastatic disease including to lung, brain, bone (L hip, jaw), following w/ Oncology at [facility], most recent chemotherapy ~ 3 weeks prior, due in ~ 3 days, given presentation would need hold, obtain mag and phos levels. (5) Severe Protein-Calorie Malnutrition: Evidenced per BMI and habitus, nutrition consulted. (6) GERD: PPI. (7) Chronic Pain Syndrome: Continue home PRN pain regimen. (8) Insomnia: Continue home PRN regimen if BP improves. (9) DVT Prophylaxis: SCDs, lovenox. (10) CODE status: Discussed CODE status at length including difference between FULL code, DNR-CCA and DNR-CC status w/ patient and his healthcare facility administrator who is also his HCPOA. He does having living will in place with very specific directions. Following discussions about the differences in these status, requested FULL CODE status but per his living will and confirmed per HCPOA he is to undergo ONLY 1 ROUND ACLS and if no MANUELA then to transition to DNR-CC status. Advanced Care Planning Face to Face Time: 18 minutes. Code Visit Inpatient E&M: 02111 Init Hosp L3 Procedures: 96608 Advncd Care Plan 30 Min
[2018-06-20 23:16] LABS: Lactic Acid 2.2 mmol/L (0.4-2.0)
[2018-06-20 23:31] LABS: Reflex Lactate? Y
--- NOTE | 2018-06-20 23:50 | RAD_ITS ---
STUDY: X-RAY CHEST REASON FOR EXAM: Male, 62 years old. Line placement. TECHNIQUE: Single AP portable view of the chest. COMPARISON: 06/20/2018. FINDINGS: There is a right subclavian central venous catheter with its tip overlying the superior vena cava. There is no demonstrated pneumothorax. There is right basilar atelectasis and infiltration overlying focal elevation of the dome of the right hemidiaphragm. The appearance is slightly worsened. There is mild left basilar atelectasis. There are calcified granulomas in the left hilar region. There is no demonstrated pleural abnormality. Normal size heart. Normal mediastinum. Normal visualized pulmonary arteries. Normal visualized aortic arch and descending thoracic aorta. Normal visualized thoracic spine. Normal visualized ribs, clavicles, and shoulders. There is no demonstrated abnormality of the visualized soft tissue structures of the upper abdomen. RAD/CXR for Line Placement IMPRESSION: Central line is in adequate position. Worsening right basilar atelectasis and infiltration. Electronically Signed: Jori Case MD at 0:26 EDT , Service support ,
[2018-06-20 23:53] LABS: Bacteria 0 SEEN /hpf (None Seen); Mucous, Urine 0 SEEN /hpf (<or=2+); Red Blood Cells-Urine 0 SEEN /hpf (0-5); Squamous Epithelial Cells - UA 0 SEEN /hpf (0-5)
[2018-06-20 23:55] LABS: Color, Urine Yellow (Yellow); Glucose, Dipstick Normal (Normal); Ketone-Dipstick 5 mg/dl (Negative); Leukocyte Esterase-Dipstick 25 /ul (Negative); Nitrite-Dipstick Negative (Negative); Occult Blood-Urine 10 /ul (Negative); Protein-Dipstick 30 mg/dl (Negative); Specific Gravity, Urine 1.015 (1.002-1.030); Urine Clarity Clear (Clear); Urine Urobilinogen 1 mg/dl (Normal)
[2018-06-21] VITALS (29 sets, daily range): BP systolic 83–121; BP diastolic 35–59; PULSE 107–134; RESP 18–34; TEMP 36.7–38.6; O2SAT 92–98; BMI 20.9
[2018-06-21 00:03] LABS: Urine Bilirubin Dipstick 1 mg/dL (Negative)
[2018-06-21 00:08] LABS: Amorphous Sediment 1+; White Blood Cells 0-5 SEEN /hpf (0-5)
--- NOTE | 2018-06-21 00:27 | HP.PCM_ITS ---
Problem List (1) Septic shock Status: Acute (2) HCAP (healthcare-associated pneumonia) Status: Acute (3) Metastatic renal cell carcinoma Status: Chronic Qualifiers: Laterality: unspecified laterality Qualified Code(s): C64.9 - Malignant neoplasm of unspecified kidney, except renal pelvis (4) GERD (gastroesophageal reflux disease) Status: Chronic Qualifiers: Esophagitis presence: esophagitis presence not specified Qualified Code(s): K21.9 - Gastro-esophageal reflux disease without esophagitis (5) Chronic pain syndrome Status: Chronic (6) Former tobacco use Status: Chronic (7) Insomnia Status: Chronic Qualifiers: Insomnia type: unspecified Qualified Code(s): G47.00 - Insomnia, unspecified (8) Anemia Status: Chronic Qualifiers: Anemia type: unspecified type Qualified Code(s): D64.9 - Anemia, unsp ecified History of Present Illness Date of Admission: 06/20/18 Chief Complaint: Dyspnea, cough, weakness The patient is a 62 y/o M w/ PMHx: GERD, Insomnia, Chronic Pain Syndrome, Former Tobacco use who presents to the [facility] ED on 06/20/18 with history of Stage IV metastatic Renal Cell Carcinoma following w/ Oncology at [facility] on ch emotherapy, last given 3 weeks prior w/ planned upcoming regimen, GERD, Insomnia, Former Tobacco Use, Chronic Pain Syndrome who presents to the [facility] on 06/21/18 with history of progressively worsening dyspnea, weakness, malaise, non-productive cough x 2 days. In the ED work-up included T 97.5, heart rate 136, BP 92/38, respiratory rate 18--> 29, 96% on room air, CBC with WBC 7.8, hgb 10.8 (05/04/18 Hgb 13.8-->05/12/18 Hgb 10.7), platelet 122 with left shift, BMP with sodium 132, BUN/creatinine 32/1.36 (baseline Cr 0.7-0.9), glucose 104, lactic acid 3.7, blood culture x2 obtained per ED CXR w/ bibasilar opacities with indeterminate nodular opacities in the left lung adjacent to the hilum in the mid left lung and possibly in the right upper lung. In the ED patient administered normal saline, IV famotidine as well as IV Rocephin. In the ED despite being administered 3L NS (30 mg/kg sepsis bolus) he continued to have MAP < 65. Discussed with ED physician and R SC central line placed for possible pressor needs and patient transitioned to the ICU. Past Medical History Past Medical History (Chronic Problems): Chronic Problems Metastatic renal cell carcinoma (Chronic) GERD (gastroesophageal reflux disease) (Chronic) Chronic pain syndrome (Chronic) Former tobacco use (Chronic) Insomnia (Chronic) Anemia (Chronic) Allergies No Known Allergies Allergy (Verified 06/20/18 19:04) Home Medications: Ambulatory Orders Medication Instructions Recorded Famotidine [Pepcid] 20 mg PO DAILY 05/04/18 Oxycodone HCl/Acetaminophen 1 tab PO Q4H PRN PRN 05/04/18 [Percocet 5-325] Mirtazapine [Remeron] 15 mg PO PRN PRN 05/12/18 Surgical History: no surgical history Psychiatric History: Anxiety Lives: - - Patient lives with his caregiver. Smoking Status: Former smoker - Quit cigarette tobacco usage ~ 1 month prior, 1 ppd since youth prior to this. Tobacco Use: Non-smoker Alcohol: None Drugs: None - *Family History Maternal History Items: - - Mother with a history of ALS. Paternal History Items: - - Mother with history of bladder cancer. Review of Systems Constitutional: Reports: Anorexia, Malaise, Weakness, Fatigue. Denies: Chills, Fever, Weight Change HEENT: Denies: Head Aches, Sinus Congestion, Sinus Drainage Cardiovascular: Denies: Chest Pain, Palpitations Respiratory: Reports: Cough, Shortness of Breath, Shortness of breath at rest, Shortness of breath upon exertion, Sputum production Gastrointestinal: Denies: Abdominal Pain, Nausea, Vomiting Genitourinary: Denies: Dysuria Musculoskeletal: Denies: Joint Pain, Joint Tenderness Skin: Denies: Rash, Wounds Neurological: Denies: Numbness, Tingling, Focal weakness Psychiatric: Reports: Anxiety. Denies: Depression, Homicidal Ideations, Suicidal Ideations Hematologic/ Lymphatic: Reports: Anemia. Denies: Easy Bruising, Easy Bleeding VTE Information - Inpt Only VTE Present on Admission: No VTE Mechan Device Prophylaxis: SCD's VTE Pharm Prophylaxis ordered?: Yes Patient Problems: Active and Suspected Problems HCAP (healthcare-associated pneumonia) (Acute) Septic shock (Acute) Subjective: Seated upright in the ED bed, fatigued appearing, ill appearing, remains hypotensive, tachycardic on monitor. Objective: Physical Examination: General: awake, alert, oriented x 3 and cooperative, seated upright in the ED bed, ill appearing. Skin: normal color, turgor, no icterus, cyanosis. HEENT: AT/NC, EOMI, PERRLA, dry MM, R jaw enlargement secondary to metastatic cancer, no carotid bruits or JVD noted. Lungs: BL, L>R diminished severely, poor effort, cough w/ increased effort, no rales, ronchi or wheezing. Heart: Tachycardic with regular rhythm; no gallop, rub audible. Abdomen: soft, thin cachetic habitus, NTTP, ND, normal BS, no HSM. Extremities: no cyanosis, clubbing, or edema. Neurological: patient awake, alert, oriented x 3; cognitive function intact; pupils equally reactive to light and accomodation; cranial nerves II-XII grossly normal, moving all 4 extremities, no focal deficits, strength severely globally decreased. Psychiatric: affect appears fatigued, flat, no acute evidence of depressive or anxiety feelings. - Physical Exam Vital Signs Temp Pulse Resp BP Pulse Ox 98.4 F 134 H 27 H 121/55 H 93 06/20/18 19:03 06/21/18 00:20 06/21/18 00:20 06/21/18 00:20 06/21/18 00:20 Oxygen Delivery Method Room Air Weight: 135 lb Body Mass Index (BMI) 19.9 Laboratory Tests Past 24 Hrs 06/20/18 06/20/18 06/20/18 19:20 19:20 19:20 WBC 7.8 RBC 3.62 L Hgb 10.8 L Hct 33.7 L MCV 93.1 MCH 29.8 MCHC 32.0 RDW 17.4 H RDW Differential 59.2 H Plt Count 122 L MPV 9.9 Neut % (Auto) Not Reportable Absolute Neuts (auto) 5.6 Absolute Lymphs (auto) 1.71 Total Counted 100 Neutrophils % (Manual) 59 Band Neutrophils % 13 H Lymphocytes % (Manual) 22 Monocytes % (Manual) 3 Metamyelocytes % 2 H Myelocytes % 1 H Diff Path Review May foll Platelet Estimate SLT DEC Anisocytosis RARE Macrocytosis RARE Sodium 132 L Potassium 4.2 Chloride 99 Carbon Dioxide 23.0 Anion Gap 10 BUN 32 H Creatinine 1.36 H Estim Creat Clear Calc 48.78 Est GFR (MDRD) Af Amer 68 Est GFR (MDRD) Non-Af 56 L BUN/Creatinine Ratio 23.5 H Glucose 104 Lactic Acid 3.7 H Calcium 9.0 Urine Color Urine Clarity Urine pH Ur Specific [place] Urine Protein Urine Glucose (UA) Urine Ketones Urine Occult Blood Urine Nitrite Urine Bilirubin Urine Urobilinogen Ur Leukocyte Esterase Urine RBC Urine WBC Ur Squamous Epith Cells Amorphous Sediment Urine Bacteria Urine Mucus 06/20/18 06/20/18 22:23 23:47 WBC RBC Hgb Hct MCV MCH MCHC RDW RDW Differential Plt Count MPV Neut % (Auto) Absolute Neuts (auto) Absolute Lymphs (auto) Total Counted Neutrophils % (Manual) Band Neutrophils % Lymphocytes % (Manual) Monocytes % (Manual) Metamyelocytes % Myelocytes % Diff Path Review Platelet Estimate Anisocytosis Macrocytosis Sodium Potassium Chloride Carbon Dioxide Anion Gap BUN Creatinine Estim Creat Clear Calc Est GFR (MDRD) Af Amer Est GFR (MDRD) Non-Af BUN/Creatinine Ratio Glucose Lactic Acid 2.2 H Calcium Urine Color Yellow Urine Clarity Clear Urine pH 5.0 Ur Specific [place] 1.015 Urine Protein 30 H Urine Glucose (UA) Normal Urine Ketones 5 H Urine Occult Blood 10 H Urine Nitrite Negative Urine Bilirubin 1 H Urine Urobilinogen 1 H Ur Leukocyte Esterase 25 H Urine RBC 0 SEEN Urine WBC 0-5 SEEN Ur Squamous Epith Cells 0 SEEN Amorphous Sediment 1+ Urine Bacteria 0 SEEN Urine Mucus 0 SEEN Assessment/Plan All Active Problems HCAP (healthcare-associated pneumonia) (Acute) Septic shock (Acute) The patient is a 62 y/o M w/ PMHx: GERD, Insomnia, Chronic Pain Syndrome, Former Tobacco use who presents to the [facility] ED on 06/20/18 with history of Stage IV metastatic Renal Cell Carcinoma following w/ [facility], last given 3 weeks prior w/ planned upcoming regimen, GERD, Ins omnia, Former Tobacco Use, Chronic Pain Syndrome who presents to the [facility] on 06/21/18 with history of progressively worsening dyspnea, weakness, malaise, non-productive cough x 2 days. (1) Acute Septic Shock secondary to suspected Pneumonia, Possible GN Organism, Consider HCAP: Evidence of sepsis-induced organ dysfunction/tissue hypoperfusion as evidenced by hypotension despite aggressive 30 mg/kg sepsis administration, JESSICA, elevated LA. Will admit patient to the ICU, maintain on cardiac monitoring, continue IVF bolus per protocol (30 ml/kg within 3 hours of initial severe sepsis presentation), maintain on IV abx regimen w/ vanc and zosyn, administer IV vasopressor therapy for persistent hypotension if not improved following addition 1L NS w/ R SC centra line in place per ED. Will obtain UA, UCx, Sputum Cx, Urinary antigens, Respiratory Viral Panel. ICU physician consulted. (2) Acute kidney injury: Secondary to acute presentation, #1. Admission BUN/Cr 32/1.36, prior baseline creatinine noted to be 0.7-0.9. Will hydrate, hold nephrotoxic medications and repeat chemistry in AM. If no improvement would plan FeNa assessment. (3) Normocytic Anemia, Chronic: Admission Hgb 10.8, likely decreased from prior noted w/ chemotherapy, repeat CBC in AM. (4) Stage IV metastatic Renal Cell Carcinoma: Known metastatic disease including to lung, brain, bone (L hip, jaw), [facility] w/ [facility], most recent chemotherapy ~ 3 weeks prior, due in ~ 3 days, given presentation would need hold, obtain mag and phos levels. (5) Severe Protein-Calorie Malnutrition: Evidenced per BMI and habitus, nutrition consulted. (6) GERD: PPI. (7) Chronic Pain Syndrome: Continue home PRN pain regimen. (8) Insomnia: Continue home PRN regimen if BP improves. (9) DVT Prophylaxis: SCDs, lovenox. (10) CODE status: Discussed CODE status at length including difference between FULL code, DNR-CCA and DNR-CC status w/ patient and his career placement specialist who is also his HCPOA. He does having living will in place with very specific directions. Following discussions about the differences in these status, requested FULL CODE status but per his living will and confirmed per HCPOA he is to undergo ONLY 1 ROUND ACLS and if no MANUELA then to transition to DNR-CC status. Advanced Care Planning Face to Face Time: 18 minutes. Code Visit Inpatient E&M: 78049 Init Hosp L3 Procedures: 65145 Advncd Care Plan 30 Min
[2018-06-21] MEDS: 0.9% Normal Saline 1,000 ML 999 ML IV (00:55)
[2018-06-21 01:32] LABS: Phosphorus 1.7 mg/dL (2.5-4.9)
[2018-06-21] MEDS: 0.9% Normal Saline 1,000 ML 150 ML IV (01:39)
--- NOTE | 2018-06-21 01:45 | PCM.RX.CS ---
Consult Pharmacy has been consulted to manage selected antiobiotic: Vancomycin Type of Consult: New start Suspected Infection: Pneumonia Prior Doses of Antibiotics Received/Current Regimen: Medications Vancomycin HCl () 500 mg in 100 mls @ 100 mls/hr IV Q12H KASHIF Vancomycin HCl 1,500 mg/ (Dextrose) 530 mls @ 250 mls/hr IV RX TO DOSE ONE Stop: 06/21/18 03:37 Last Admin: 06/21/18 01:39 Dose: 250 mls/hr Labs: Sodium 132 mmol/L (136-145) L 06/20/18 19:20 Potassium 4.2 mmol/L (3.5-5.1) 06/20/18 19:20 Chloride 99 mmol/L (98-107) 06/20/18 19:20 Carbon Dioxide 23.0 mmol/L (21.0-32.0) 06/20/18 19:20 Anion Gap 10 (5-15) 06/20/18 19:20 BUN 32 mg/dL (7-18) H 06/20/18 19:20 Creatinine 1.36 mg/dL (0.70-1.30) H 06/20/18 19:20 Est GFR (MDRD) Af Amer 68 mL/min (>60) 06/20/18 19:20 Est GFR (MDRD) Non-Af 56 mL/min (>60) L 06/20/18 19:20 BUN/Creatinine Ratio 23.5 RATIO (10-20) H 06/20/18 19:20 Glucose 104 mg/dL (74-106) 06/20/18 19:20 Microbiology: Microbiology 06/20/18 23:50 Urine Catheter - Muhammad Legionella Antigen - Final 06/20/18 23:50 Urine Catheter - Muhammad Streptococcus pneumoniae Antigen (M - Final Weight used for dosin.3 kg Estimated Creatinine Clearance: 49 Goal Trough: 15-20 mcg/mL Pharmacy Plan for Drug Dosing: Pharmacy Service will continue to monitor and adjust dosing as required. Follow-Up Labs: Trough Vancomycin Labs to be done on [date and time ordered]: 06/22/18 @1300.
[2018-06-21 02:53] LABS: Reflex Lactate? Y
[2018-06-21] MEDS: 0.9% NaCl IVPB Med Flush (250 mL) 15 ML IV (03:08)
[2018-06-21 03:09] LABS: M R Staph aureus DNA By PCR Negative (Negative); Probe Check PASS; Specimen Processing Control PASS
[2018-06-21 03:34] LABS: Lactic Acid 1.7 mmol/L (0.4-2.0)
[2018-06-21 05:03] LABS: Hematocrit 25.4 % (40-54); Hemoglobin 8.2 g/dl (13.0-16.5); Mean Corp Hgb Conc 32.3 g/gl (32-36); Mean Corpuscular Hgb 30.1 pg (27.0-32.0); Mean Corpuscular Volume 93.4 fL (80-94); Mean Platelet Vol. 9.8 fl (6.2-12.0); Platelet Count 97 K/mm3 (150-450); RBC Distribution Width CV 17.4 % (11.6-14.6); RBC Distribution Width SD 56.6 fl (35.1-43.9); Red Blood Count 2.72 M/mm3 (4.6-6.2); White Blood Count 5.6 K/mm3 (4.4-11.0)
[2018-06-21 05:09] LABS: Differential Indicated MANUAL DIFF; POSITIVE COUNT YES; POSITIVE DIFFERENTIAL NO; POSITIVE MORPHOLOGY YES
[2018-06-21] MEDS: Piperacil/Tazobactam 3.375 GM/50 ML ML IV ×3 (05:14→21:55)
[2018-06-21 05:25] LABS: Eosinophil 1 % (0-5); Lymphocyte 16 % (19-41); Metamyelocyte 1 % (0-1); Monocyte 3 % (0-10); Myelocyte 3 (0-0); Neutrophil-Band 3 % (0-5); Neutrophil-Segmented 73 % (47-70); Platelet Estimate ADEQUATE (ADEQ); Red Cell Morphology NORM C+C NORMAL (NORM C&C); Total Cells Counted 100 (MANUAL DIFF); Toxic Granulation 2+
[2018-06-21 05:26] LABS: Absolute Neutrophil Count 4.3 X10^3/uL (2.0-7.7); Neutrophil # 4.26 X10^3/uL (2.7-7.7)
[2018-06-21 05:27] LABS: Anion Gap 10 (5-15); BUN 28 mg/dL (7-18); BUN/Creat Ratio 30.1 RATIO (10-20); Calcium,Total 7.4 mg/dL (8.5-10.1); Chloride 108 mmol/L (98-107); Creatinine, Serum 0.93 mg/dL (0.70-1.30); EST Glomerular Filtration Rate 87 mL/min (>60); Est Glom Filt Rate - Afr Amer 106 mL/min (>60); Glucose 78 mg/dL (74-106); Potassium 3.7 mmol/L (3.5-5.1); Sodium Level 138 mmol/L (136-145)
--- NOTE | 2018-06-21 07:07 | CON.PCM_ITS ---
Reason for Consult Date of Consultation: 06/21/18 Reason for Consultation: Severe sepsis History of Present Illness: The patient is a 62-year-old male, with a history as outlined below, who presented to the emergency department on June 20 with complaints of generalized malaise, weakness, nausea, shortness of breath and nonproductive cough of 2-3 days duration. He denied any vomiting or diarrhea to me. The patient does have a history of stage IV metastatic renal cell carcinoma, for which he follows with oncology at the [facility]. The patient is currently receiving chemotherapy and had plans to receive another round this week. The patient also reports the presence of decreased p.o. intake. His cough is essentially nonproductive and he has not been able to produce any sputum. On presentation to the emergency department, the patient was noted to be afebrile, tachycardic with labile blood pressures. He was, nevertheless, maintaining appropriate oxygen saturations on room air. Laboratory evaluation did reveal evidence of bandemia and normocytic anemia. Chemistry profile was notable for acute kidney injury with a creatinine of 1.36. Serum lactate was elevated to 3.7. Phosphorus was low at 1.7. Urinalysis was negative for nitrites and positive for leukocyte esterase. No bacteria was noted. MRSA screen was negative. Plain film chest imaging revealed evidence of an airspace opacity versus atelectasis in the right lung base. Due to the patient's tenuous blood pressure parameters, a central venous catheter was placed in the emergency department. Broad-spectrum antibiotics were initiated. The patient was subsequently transferred to the medical intensive care unit for ongoing management. At the current time, the patient is overall net +4.7 L for the admission. He does report that his blood pressure typically runs on the low side. Vasopressor support was never initiated. The patient does have documented blood pressures in our system from April 2018 with systolics which ranged from 90-105 mmHg. Past Medical History Past Medical History (Chronic Problems): Chronic Problems Metastatic renal cell carcinoma (Chronic) GERD (gastroesophageal reflux disease) (Chronic) Chronic pain syndrome (Chronic) Former tobacco use (Chronic) Insomnia (Chronic) Anemia (Chronic) Allergies No Known Allergies Allergy (Verified 06/20/18 19:04) Home Medications: Ambulatory Orders Medication Instructions Recorded Famotidine [Pepcid] 20 mg PO DAILY 05/04/18 Oxycodone HCl/Acetaminophen 1 tab PO Q4H PRN PRN 05/04/18 [Percocet 5-325] Mirtazapine [Remeron] 15 mg PO PRN PRN 05/12/18 Surgical History: no surgical history Psychiatric History: Anxiety Lives: - - Patient lives with his caregiver. Smoking Status: Former smoker Tobacco Use: Non-smoker Alcohol: None Drugs: None - *Family History Maternal History Items: - - Mother with a history of ALS. Paternal History Items: - - Mother with history of bladder cancer. Review of Systems Constitutional: Reports: Malaise, Weakness, Fatigue Eyes: Denies: Blurred vision, Double vision HEENT: Denies: Head Aches, Sinus Congestion, Sinus Drainage Cardiovascular: Denies: Chest Pain, Palpitations Respiratory: Reports: Shortness of Breath. Denies: Sputum production Gastrointestinal: Reports: Nausea. Denies: Diarrhea, Vomiting Genitourinary: Denies: Dysuria Musculoskeletal: Denies: Joint Pain, Joint Tenderness Skin: Denies: Rash, Wounds Neurological: Denies: Numbness, Tingling, Focal weakness Psychiatric: Denies: Anxiety, Depression, Homicidal Ideations, Suicidal Ideations Hematologic/ Lymphatic: Reports: Anemia Patient Problems: Active and Suspected Problems HCAP (healthcare-associated pneumonia) (Acute) Septic shock (Acute) Objective: The patient's most recent lab work, culture data and imaging studies have all been personally reviewed. Blood cultures are currently pending. Strep and urine Legionella antigens were both negative. Respiratory viral panel is pending. - Physical Exam General: Alert, Cooperative, No apparent distress HEENT: Atraumatic, PERRLA, Normocephalic, - - Right mandibular fullness secondary to metastatic disease Oral: Moist Mucosa Neck: Supple, No Nodes, Trachea Midline Lungs: No rhonchi, No wheeze, No rales, Diminished Cardiovascular: Normal S1, Normal S2, No murmurs, Tachycardic Abdomen: Bowel Sounds Present, Soft, Non Tender Extremities: No clubbing, No cyanosis, No edema Skin: No breakdown Musculoskeletal: No Tenderness to Palpation of Joints or Extremities Lymphatic: No Cervical, Supraclavicular, or Inguinal Adenopathy Neurological: Cranial nerves II-XII grossly intact, Neuro grossly intact Psych/Mental Status: Flat Affect Vital Signs Temp Pulse Resp BP Pulse Ox 100.2 F H 109 H 27 H 96/46 L 95 06/21/18 06:00 06/21/18 06:00 06/21/18 06:00 06/21/18 06:00 06/21/18 06:00 Oxygen Delivery Method Room Air Weight: 141 lb 12.116 oz Body Mass Index (BMI) 20.9 Intake and Output for Last 24 Hours 06/19/18 06/20/18 06/21/18 23:59 23:59 23:59 Intake Total 5299 / 5299 Output Total 575 / 575 Balance 4724 / 4724 Microbiology Past 72 Hours 06/20/18 23:50 Legionella Antigen - Final Urine Catheter - Muhammad 06/20/18 23:50 Streptococcus pneumoniae Antigen (M - Final Urine Catheter - Muhammad Laboratory Tests Past 24 Hrs 06/20/18 06/20/18 06/20/18 19:20 19:20 19:20 WBC 7.8 RBC 3.62 L Hgb 10.8 L Hct 33.7 L MCV 93.1 MCH 29.8 MCHC 32.0 RDW 17.4 H RDW Differential 59.2 H Plt Count 122 L MPV 9.9 Neut % (Auto) Not Reportable Absolute Neuts (auto) 5.6 Absolute Lymphs (auto) 1.71 Total Counted 100 Neutrophils % (Manual) 59 Band Neutrophils % 13 H Lymphocytes % (Manual) 22 Monocytes % (Manual) 3 Eosinophils % (Manual) Metamyelocytes % 2 H Myelocytes % 1 H Diff Path Review May foll Toxic Granulation Platelet Estimate SLT DEC RBC Morphology Anisocytosis RARE Macrocytosis RARE Sodium 132 L Potassium 4.2 Chloride 99 Carbon Dioxide 23.0 Anion Gap 10 BUN 32 H Creatinine 1.36 H Estim Creat Clear Calc 48.78 Est GFR (MDRD) Af Amer 68 Est GFR (MDRD) Non-Af 56 L BUN/Creatinine Ratio 23.5 H Glucose 104 Lactic Acid 3.7 H Calcium 9.0 Phosphorus Magnesium Urine Color Urine Clarity Urine pH Ur Specific [place] Urine Protein Urine Glucose (UA) Urine Ketones Urine Occult Blood Urine Nitrite Urine Bilirubin Urine Urobilinogen Ur Leukocyte Esterase Urine RBC Urine WBC Ur Squamous Epith Cells Amorphous Sediment Urine Bacteria Urine Mucus MRSA (PCR) 06/20/18 06/20/18 06/20/18 19:20 22:23 23:47 WBC RBC Hgb Hct MCV MCH MCHC RDW RDW Differential Plt Count MPV Neut % (Auto) Absolute Neuts (auto) Absolute Lymphs (auto) Total Counted Neutrophils % (Manual) Band Neutrophils % Lymphocytes % (Manual) Monocytes % (Manual) Eosinophils % (Manual) Metamyelocytes % Myelocytes % Diff Path Review Toxic Granulation Platelet Estimate RBC Morphology Anisocytosis Macrocytosis Sodium Potassium Chloride Carbon Dioxide Anion Gap BUN Creatinine Estim Creat Clear Calc Est GFR (MDRD) Af Amer Est GFR (MDRD) Non-Af BUN/Creatinine Ratio Glucose Lactic Acid 2.2 H Calcium Phosphorus 1.7 L Magnesium 2.0 Urine Color Yellow Urine Clarity Clear Urine pH 5.0 Ur Specific [place] 1.015 Urine Protein 30 H Urine Glucose (UA) Normal Urine Ketones 5 H Urine Occult Blood 10 H Urine Nitrite Negative Urine Bilirubin 1 H Urine Urobilinogen 1 H Ur Leukocyte Esterase 25 H Urine RBC 0 SEEN Urine WBC 0-5 SEEN Ur Squamous Epith Cells 0 SEEN Amorphous Sediment 1+ Urine Bacteria 0 SEEN Urine Mucus 0 SEEN MRSA (PCR) 06/21/18 06/21/18 06/21/18 01:10 03:02 04:50 WBC 5.6 RBC 2.72 L Hgb 8.2 L Hct 25.4 L MCV 93.4 MCH 30.1 MCHC 32.3 RDW 17.4 H RDW Differential 56.6 H Plt Count 97 L MPV 9.8 Neut % (Auto) Not Reportable Absolute Neuts (auto) 4.3 Absolute Lymphs (auto) 0.90 Total Counted 100 Neutrophils % (Manual) 73 H Band Neutrophils % 3 Lymphocytes % (Manual) 16 L Monocytes % (Manual) 3 Eosinophils % (Manual) 1 Metamyelocytes % 1 Myelocytes % 3 H Diff Path Review May foll Toxic Granulation 2+ Platelet Estimate ADEQUATE RBC Morphology NORM C+C Anisocytosis Macrocytosis Sodium Potassium Chloride Carbon Dioxide Anion Gap BUN Creatinine Estim Creat Clear Calc Est GFR (MDRD) Af Amer Est GFR (MDRD) Non-Af BUN/Creatinine Ratio Glucose Lactic Acid 1.7 Calcium Phosphorus Magnesium Urine Color Urine Clarity Urine pH Ur Specific [place] Urine Protein Urine Glucose (UA) Urine Ketones Urine Occult Blood Urine Nitrite Urine Bilirubin Urine Urobilinogen Ur Leukocyte Esterase Urine RBC Urine WBC Ur Squamous Epith Cells Amorphous Sediment Urine Bacteria Urine Mucus MRSA (PCR) Negative 06/21/18 04:50 WBC RBC Hgb Hct MCV MCH MCHC RDW RDW Differential Plt Count MPV Neut % (Auto) Absolute Neuts (auto) Absolute Lymphs (auto) Total Counted Neutrophils % (Manual) Band Neutrophils % Lymphocytes % (Manual) Monocytes % (Manual) Eosinophils % (Manual) Metamyelocytes % Myelocytes % Diff Path Review Toxic Granulation Platelet Estimate RBC Morphology Anisocytosis Macrocytosis Sodium 138 Potassium 3.7 Chloride 108 H Carbon Dioxide 20.0 L Anion Gap 10 BUN 28 H Creatinine 0.93 Estim Creat Clear Calc 74.90 Est GFR (MDRD) Af Amer 106 Est GFR (MDRD) Non-Af 87 BUN/Creatinine Ratio 30.1 H Glucose 78 Lactic Acid Calcium 7.4 L Phosphorus Magnesium Urine Color Urine Clarity Urine pH Ur Specific [place] Urine Protein Urine Glucose (UA) Urine Ketones Urine Occult Blood Urine Nitrite Urine Bilirubin Urine Urobilinogen Ur Leukocyte Esterase Urine RBC Urine WBC Ur Squamous Epith Cells Amorphous Sediment Urine Bacteria Urine Mucus MRSA (PCR) Clinical Impression(s) from Imaging Studies Chest X-Ray 06/20/18 19:30 IMPRESSION: Bibasilar opacities likely represent atelectasis, although early consolidations cannot be excluded. There is no obvious effusion. There are indeterminate nodular opacities in the left lung adjacent to the hilum, in the mid left lung, and possibly in the right upper lung. A CT of the chest is recommended for further characterization. Electronically Signed: Romelia Castellon MD at 20:05 EDT Tel Direct: [phone], Service support , Chest X-Ray 06/20/18 23:50 IMPRESSION: Central line is in adequate position. Worsening right basilar atelectasis and infiltration. Electronically Signed: Jori Case MD at 0:26 EDT , Service support , Assessment/Plan Active and Suspected Problems HCAP (healthcare-associated pneumonia) (Acute) Septic shock (Acute) RECOMMENDATIONS: 1. Given negative MRSA screen, vancomycin can likely be discontinued. Okay to continue Zosyn for now. 2. Discontinue supplemental IV fluid hydration, as the patient is overall net positive for the admission. 3. Await infectious workup, including respiratory viral panel. 4. Monitor blood counts daily. Transfuse if hemoglobin drops below 7 g/dL. 5. Electrolyte repletion as needed. 6. DVT prophylaxis with Lovenox. IMPRESSIONS: 1. Severe sepsis with concern for HCAP The patient's presenting hypotension was likely secondary to intravascular volume depletion, which responded to volume expansion. No vasopressor support was required. The patient is clinically stable with improved hemodynamics. Given that the patient's MRSA screen was negative, vancomycin was discontinued. We will continue with Zosyn, pending infectious workup. Discontinue continuous supplemental IV fluids. 2. Acute kidney injury, likely secondary to prerenal azotemia The patient's creatinine has normalized, following volume expansion. Urine output remains appropriate. No indication for renal replacement therapy. 3. Normocytic anemia Continue to monitor blood counts daily. Transfuse if hemoglobin drops below 7 g/dL. 4. Metastatic renal cell carcinoma/GERD/chronic pain syndrome Complicates care, management, recovery and prognosis. Likely okay to continue home medications at this time. This note was generated with [email or web address] dictation software. It may contain incorrect words, spelling, and punctuation that were not noted in checking the note before signing. Code Visit Inpatient E&M: 47134 Init Hosp L3
[2018-06-21] MEDS: Ipratropium/Albuterol Sulfate 3 ML AMPUL.NEB INHALATION (07:15)
[2018-06-21] MEDS: 0.9% NaCl Peripheral Flush Adult/Peds IV ×2 (08:14→08:16)
--- NOTE | 2018-06-21 09:24 | PCM.PN.HOSP ---
Patient Problems: Active and Suspected Problems HCAP (healthcare-associated pneumonia) (Acute) Septic shock (Acute) Subjective: Feels better now than when he came in last night. SBP are normal for him, non-productive cough Vitals/I&O's: Vital Signs Temp Pulse Resp BP Pulse Ox 100.2 F H 116 H 33 H 98/35 L 96 06/21/18 08:00 06/21/18 08:00 06/21/18 08:00 06/21/18 08:00 06/21/18 08:00 Oxygen Delivery Method Room Air Weight: 141 lb 12.116 oz Body Mass Index (BMI) 20.9 Intake and Output for Last 24 Hours 06/19/18 06/20/18 06/21/18 23:59 23:59 23:59 Intake Total 5299 / 5299 Output Total 575 / 575 Balance 4724 / 4724 General: Alert, Oriented x3, Cooperative, No apparent distress HEENT: Atraumatic, EOMI, Normocephalic Oral: Moist Mucosa Neck: Supple, No JVD Lungs: Clear to auscultation, Normal air movement, No rhonchi, No wheeze, No rales, Diminished - left greater than right Cardiovascular: Regular rate, Regular Rhythm, Normal S1, Normal S2, No murmurs Abdomen: Soft, Non Tender, Non-Distended, No Hepato-splenomegaly Extremities: No edema, Capillary Refill Less than 3 Seconds Skin: No rashes, No breakdown Neurological: Neuro grossly intact, Sensory exam intact to light touch and pain Psych/Mental Status: Normal Affect, Appropriate Microbiology Past 72 Hours 06/21/18 00:25 Mucosa - Nose Respiratory Panel (PCR) - Final 06/20/18 23:50 Urine Catheter - Muhammad Legionella Antigen - Final 06/20/18 23:50 Urine Catheter - Muhammad Streptococcus pneumoniae Antigen (M - Final Laboratory Results 06/20/18 19:20: WBC 7.8, RBC 3.62 L, Hgb 10.8 L, Hct 33.7 L, MCV 93.1, MCH 29.8, MCHC 32.0, RDW 17.4 H, RDW Differential 59.2 H, Plt Count 122 L, MPV 9.9, Neut % (Auto) Not Reportable, Absolute Neuts (auto) 5.6, Absolute Lymphs (auto) 1.71, Total Counted 100, Neutrophils % (Manual) 59, Band Neutrophils % 13 H, Lymphocytes % (Manual) 22, Monocytes % (Manual) 3, Metamyelocytes % 2 H, Myelocytes % 1 H, Diff Path Review May foll, Platelet Estimate SLT DEC, Anisocytosis RARE, Macrocytosis RARE 06/20/18 19:20: Sodium 132 L, Potassium 4.2, Chloride 99, Carbon Dioxide 23.0, Anion Gap 10, BUN 32 H, Creatinine 1.36 H, Estim Creat Clear Calc 48.78, Est GFR (MDRD) Af Amer 68, Est GFR (MDRD) Non-Af 56 L, BUN/Creatinine Ratio 23.5 H, Glucose 104, Calcium 9.0 06/20/18 19:20: Lactic Acid 3.7 H 06/20/18 19:20: Phosphorus 1.7 L, Magnesium 2.0 06/20/18 22:23: Lactic Acid 2.2 H 06/20/18 23:47: Urine Color Yellow, Urine Clarity Clear, Urine pH 5.0, Ur Specific [place] 1.015, Urine Protein 30 H, Urine Glucose (UA) Normal, Urine Ketones 5 H, Urine Occult Blood 10 H, Urine Nitrite Negative, Urine Bilirubin 1 H, Urine Urobilinogen 1 H, Ur Leukocyte Esterase 25 H, Urine RBC 0 SEEN, Urine WBC 0-5 SEEN, Ur Squamous Epith Cells 0 SEEN, Amorphous Sediment 1+, Urine Bacteria 0 SEEN, Urine Mucus 0 SEEN 06/21/18 01:10: MRSA (PCR) Negative 06/21/18 03:02: Lactic Acid 1.7 06/21/18 04:50: WBC 5.6, RBC 2.72 L, Hgb 8.2 L, Hct 25.4 L, MCV 93.4, MCH 30.1, MCHC 32.3, RDW 17.4 H, RDW Differential 56.6 H, Plt Count 97 L, MPV 9.8, Neut % (Auto) Not Reportable, Absolute Neuts (auto) 4.3, Absolute Lymphs (auto) 0.90, Total Counted 100, Neutrophils % (Manual) 73 H, Band Neutrophils % 3, Lymphocytes % (Manual) 16 L, Monocytes % (Manual) 3, Eosinophils % (Manual) 1, Metamyelocytes % 1, Myelocytes % 3 H, Diff Path Review May foll, Toxic Granulation 2+, Platelet Estimate ADEQUATE, RBC Morphology NORM C+C 06/21/18 04:50: Sodium 138, Potassium 3.7, Chloride 108 H, Carbon Dioxide 20.0 L, Anion Gap 10, BUN 28 H, Creatinine 0.93, Estim Creat Clear Calc 74.90, Est GFR (MDRD) Af Amer 106, Est GFR (MDRD) Non-Af 87, BUN/Creatinine Ratio 30.1 H, Glucose 78, Calcium 7.4 L Current Medications Acetaminophen (Tylenol) 650 mg PO Q4H PRN PRN PRN Reason: FEVER Acetaminophen (Tylenol) 650 mg PO Q6H PRN PRN PRN Reason: Mild Pain (scale 0-3)/T>100.7 Al Hydroxide/Mg Hydroxide (Mylanta Ii) 30 ml PO Q6H PRN PRN PRN Reason: Gastric burning Albuterol Sulfate (Ventolin Aerosols) 2.5 mg INHALATION Q2H PRN PRN PRN Reason: SHORTNESS OF BREATH Albuterol/Ipratropium (Duoneb) 3 ml INHALATION Q6HWA.RT [facility] Last Admin: 06/21/18 07:15 Dose: 3 ml Enoxaparin Sodium (Lovenox) 40 mg SC DAILY@1000 [facility] Guaifenesin (Mucinex) 1,200 mg PO BID [facility] Piperacillin Sod/Tazobactam Sod (Zosyn) 3.375 gm in 50 mls @ 12.5 mls/hr IV Q8 [facility] Last Admin: 06/21/18 05:14 Dose: 12.5 mls/hr Norepinephrine Bitartrate 8 mg (/ Dextrose) 258 mls @ 9.68 mls/hr IV .[id number] [facility] Last Admin: 06/21/18 01:11 Dose: Not Given Sodium Chloride () 250 mls @ 15 mls/hr IV .[id number] PRN PRN Reason: SALINE FLUSH Last Admin: 06/21/18 03:08 Dose: 15 mls/hr Vancomycin HCl () 500 mg in 100 mls @ 100 mls/hr IV Q12H [facility] Magnesium Hydroxide (Milk Of Magnesia) 30 ml PO DAILY PRN PRN Reason: Constipation Mirtazapine (Remeron) 15 mg PO QHS PRN PRN PRN Reason: SLEEP Ondansetron HCl (Zofran) 4 mg IV Q8H PRN PRN PRN Reason: NAUSEA Oxycodone HCl (Oxyir) 5 mg PO Q4H PRN PRN PRN Reason: PAIN Pantoprazole Sodium (Protonix) 40 mg PO BID KASHIF Potassium Phos/Sodium Phos (Neutra-Phos Packet) 1 packet PO 4X/DAY KASHIF Promethazine HCl (Phenergan) 12.5 mg IV Q6H PRN PRN PRN Reason: NAUSEA/VOMITING Sodium Chloride () 5 - 30 ml IV UD PRN PRN Reason: SALINE FLUSH Last Admin: 06/21/18 08:16 Dose: 10 ml Medical Necessity - Tobacco Use Smoking Status: Former smoker Tobacco Use: Non-smoker Assessment/Plan All Active Problems HCAP (healthcare-associated pneumonia) (Acute) Septic shock (Acute) 1. Septic shock 2/2 to possible HCAP/JESSICA (resolved) - MRSA screen is negative - DC vanc and c/w zosyn - No IVF - Cr is .93 today - Cx pending 2. Normocytic Anemia - H/H 8.2 today likely dilutional - will continue to monitor 3. Stage 4 renal cell carcinoma - Mets to the lung, brain and bone - follow at the main campus and had chemo 3 weeks ago and has chemo again in 3 days 4. GERD - Stable - c/w PPI 5. Chronic pain - Stable at the moment - c/w home pain management 6. Insomnia - Can c/w home PRN regimen DVT: SCD, Lovenox Code Visit Inpatient E&M: 06822 Subs Hosp L2
--- NOTE | 2018-06-21 09:26 | CASEMGMT ---
RN CM Assessment Intro role of CM to patient in room. Pt is awake, alert and able to participate in RN CM assessment. PCP: None. Discussed recommendation for establishing with PCP. List given to pt. He will review, RN CM can assist if needed. [facility] Pharmacy: pt requested [facility] on [address]. Entered into chart Prescription coverage: yes through [employer] Living arrangements: Two story Home, stairs into home. No difficulty per pt. DME: none DC PLAN: home on discharge.
--- NOTE | 2018-06-21 09:29 | PN_ITS ---
Patient Problems: Active and Suspected Problems HCAP (healthcare-associated pneumonia) (Acute) Septic shock (Acute) Subjective: Feels better now than when he came in last night. SBP are normal for him, non- productive cough Vitals/I&O's: Vital Signs Temp Pulse Resp BP Pulse Ox 100.2 F H 116 H 33 H 98/35 L 96 06/21/18 08:00 06/21/18 08:00 06/21/18 08:00 06/21/18 08:00 06/21/18 08:00 Oxygen Delivery Method Room Air Weight: 141 lb 12.116 oz Body Mass Index (BMI) 20.9 Intake and Output for Last 24 Hours 06/19/18 06/20/18 06/21/18 23:59 23:59 23:59 Intake Total 5299 / 5299 Output Total 575 / 575 Balance 4724 / 4724 General: Alert, Oriented x3, Cooperative, No apparent distress HEENT: Atraumatic, EOMI, Normocephalic Oral: Moist Mucosa Neck: Supple, No JVD Lungs: Clear to auscultation, Normal air movement, No rhonchi, No wheeze, No rales, Diminished - left greater than right Cardiovascular: Regular rate, Regular Rhythm, Normal S1, Normal S2, No murmurs Abdomen: Soft, Non Tender, Non-Distended, No Hepato-splenomegaly Extremities: No edema, Capillary Refill Less than 3 Seconds Skin: No rashes, No breakdown Neurological: Neuro grossly intact, Sensory exam intact to light touch and pain Psych/Mental Status: Normal Affect, Appropriate Microbiology Past 72 Hours 06/21/18 00:25 Mucosa - Nose Respiratory Panel (PCR) - Final 06/20/18 23:50 Urine Catheter - Muhammad Legionella Antigen - Final 06/20/18 23:50 Urine Catheter - Muhammad Streptococcus pneumoniae Antigen (M - Final Laboratory Results 06/20/18 19:20: WBC 7.8, RBC 3.62 L, Hgb 10.8 L, Hct 33.7 L, MCV 93.1, MCH 29.8, MCHC 32.0, RDW 17.4 H, RDW Differential 59.2 H, Plt Count 122 L, MPV 9.9, Neut % (Auto) Not Reportable, Absolute Neuts (auto) 5.6, Absolute Lymphs (auto) 1.71, Total Counted 100, Neutrophils % (Manual) 59, Band Neutrophils % 13 H, Lymphocytes % (Manual) 22, Monocytes % (Manual) 3, Metamyelocytes % 2 H, Myelocytes % 1 H, Diff Path Review May foll, Platelet Estimate SLT DEC, Anisocytosis RARE, Macrocytosis RARE 06/20/18 19:20: Sodium 132 L, Potassium 4.2, Chloride 99, Carbon Dioxide 23.0, Anion Gap 10, BUN 32 H, Creatinine 1.36 H, Estim Creat Clear Calc 48.78, Est GFR (MDRD) Af Amer 68, Est GFR (MDRD) Non-Af 56 L, BUN/Creatinine Ratio 23.5 H, Glucose 104, Calcium 9.0 06/20/18 19:20: Lactic Acid 3.7 H 06/20/18 19:20: Phosphorus 1.7 L, Magnesium 2.0 06/20/18 22:23: Lactic Acid 2.2 H 06/20/18 23:47: Urine Color Yellow, Urine Clarity Clear, Urine pH 5.0, Ur Specific [place] 1.015, Urine Protein 30 H, Urine Glucose (UA) Normal, Urine Ketones 5 H, Urine Occult Blood 10 H, Urine Nitrite Negative, Urine Bilirubin 1 H, Urine Urobilinogen 1 H, Ur Leukocyte Esterase 25 H, Urine RBC 0 SEEN, Urine WBC 0-5 SEEN, Ur Squamous Epith Cells 0 SEEN, Amorphous Sediment 1+, Urine Bacteria 0 SEEN, Urine Mucus 0 SEEN 06/21/18 01:10: MRSA (PCR) Negative 06/21/18 03:02: Lactic Acid 1.7 06/21/18 04:50: WBC 5.6, RBC 2.72 L, Hgb 8.2 L, Hct 25.4 L, MCV 93.4, MCH 30.1, MCHC 32.3, RDW 17.4 H, RDW Differential 56.6 H, Plt Count 97 L, MPV 9.8, Neut % (Auto) Not Reportable, Absolute Neuts (auto) 4.3, Absolute Lymphs (auto) 0.90, Total Counted 100, Neutrophils % (Manual) 73 H, Band Neutrophils % 3, Lymphocytes % (Manual) 16 L, Monocytes % (Manual) 3, Eosinophils % (Manual) 1, Metamyelocytes % 1, Myelocytes % 3 H, Diff Path Review May foll, Toxic Granulation 2+, Platelet Estimate ADEQUATE, RBC Morphology NORM C+C 06/21/18 04:50: Sodium 138, Potassium 3.7, Chloride 108 H, Carbon Dioxide 20.0 L , Anion Gap 10, BUN 28 H, Creatinine 0.93, Estim Creat Clear Calc 74.90, Est GFR (MDRD) Af Amer 106, Est GFR (MDRD) Non-Af 87, BUN/Creatinine Ratio 30.1 H, Glucose 78, Calcium 7.4 L Current Medications Acetaminophen (Tylenol) 650 mg PO Q4H PRN PRN PRN Reason: FEVER Acetaminophen (Tylenol) 650 mg PO Q6H PRN PRN PRN Reason: Mild Pain (scale 0-3)/T>100.7 Al Hydroxide/Mg Hydroxide (Mylanta Ii) 30 ml PO Q6H PRN PRN PRN Reason: Gastric burning Albuterol Sulfate (Ventolin Aerosols) 2.5 mg INHALATION Q2H PRN PRN PRN Reason: SHORTNESS OF BREATH Albuterol/Ipratropium (Duoneb) 3 ml INHALATION Q6HWA.RT [facility] Last Admin: 06/21/18 07:15 Dose: 3 ml Enoxaparin Sodium (Lovenox) 40 mg SC DAILY@1000 [facility] Guaifenesin (Mucinex) 1,200 mg PO BID [facility] Piperacillin Sod/Tazobactam Sod (Zosyn) 3.375 gm in 50 mls @ 12.5 mls/hr IV Q8 [facility] Last Admin: 06/21/18 05:14 Dose: 12.5 mls/hr Norepinephrine Bitartrate 8 mg (/ Dextrose) 258 mls @ 9.68 mls/hr IV .[id number] [facility] Last Admin: 06/21/18 01:11 Dose: Not Given Sodium Chloride () 250 mls @ 15 mls/hr IV .[id number] PRN PRN Reason: SALINE FLUSH Last Admin: 06/21/18 03:08 Dose: 15 mls/hr Vancomycin HCl () 500 mg in 100 mls @ 100 mls/hr IV Q12H [facility] Magnesium Hydroxide (Milk Of Magnesia) 30 ml PO DAILY PRN PRN Reason: Constipation Mirtazapine (Remeron) 15 mg PO QHS PRN PRN PRN Reason: SLEEP Ondansetron HCl (Zofran) 4 mg IV Q8H PRN PRN PRN Reason: NAUSEA Oxycodone HCl (Oxyir) 5 mg PO Q4H PRN PRN PRN Reason: PAIN Pantoprazole Sodium (Protonix) 40 mg PO BID [facility] Potassium Phos/Sodium Phos (Neutra-Phos Packet) 1 packet PO 4X/DAY [facility] Promethazine HCl (Phenergan) 12.5 mg IV Q6H PRN PRN PRN Reason: NAUSEA/VOMITING Sodium Chloride () 5 - 30 ml IV UD PRN PRN Reason: SALINE FLUSH Last Admin: 06/21/18 08:16 Dose: 10 ml Medical Necessity - Tobacco Use Smoking Status: Former smoker Tobacco Use: Non-smoker Assessment/Plan All Active Problems HCAP (healthcare-associated pneumonia) (Acute) Septic shock (Acute) 1. Septic shock 2/2 to possible HCAP/JESSICA (resolved) - MRSA screen is negative - DC vanc and c/w zosyn - No IVF - Cr is .93 today - Cx pending 2. Normocytic Anemia - H/H 8.2 today likely dilutional - will continue to monitor 3. Stage 4 renal cell carcinoma - Mets to the lung, brain and bone - follow at the main campus and had chemo 3 weeks ago and has chemo again in 3 days 4. GERD - Stable - c/w PPI 5. Chronic pain - Stable at the moment - c/w home pain management 6. Insomnia - Can c/w home PRN regimen DVT: SCD, Lovenox Code Visit Inpatient E&M: 89137 Subs Hosp L2
[2018-06-21] MEDS: Enoxaparin 40 MG/0.4 ML Syringe SC (13:06)
[2018-06-21] MEDS: Pantoprazole Sodium 40 MG Tablet PO ×2 (13:06→21:58)
--- NOTE | 2018-06-21 13:09 | CASEMGMT ---
TOMAS SHEN Note. Pt's caregiver who lives with pt, Lizy Goncalves came in to speak with RNAC and SW. She offered more information on home situation for pt. States she has lived with pt for 15 years and provides transportation to [facility] main campus, care needs, meals. States she is DPOA and will bring papers in for chart record. -Caregiver states they were to meet Palliative Care/[facility] this Tuesday to evaluate. Caregiver will call to see if meeting can be set up @ [facility] when she is available. -Pharmacy: [facility]. -Caregiver is concerned that pt is weak, may not be able to manage @ home. PT/OT evaluations pending. -RN AC/MARY JO will continue to follow and assist w/dc planning. Katya ST RN ACM
--- NOTE | 2018-06-21 13:21 | CASEMGMT ---
MARY JO and AC met w/pt's friend Lizy today in the waiting area by the elevators. She explains that she lives w/pt, along w/her three children. She has lived with pt for 15 years. Lizy states she is pt's fugitive investigator, expressed concern regarding pt. She states she is pt's POA (will bring in papers later). Pt sees Dr. Davies at [facility]. Pt's last treatment was on June 02, and had gamma knife on June 03. Pt was due for his next chemo treatment tomorrow, however Lizy cancelled it. She assists pt at home, takes him to appointments at [facility]. Lizy states pt has been very weak, not eating or drinking well. Lizy is concerned about pt's care at home. MARY JO spoke w/Lizy about possible SNF option if needed, and offered to bring her a list of facilities that take [place], should this be needed. MARY JO explained if SNF needed, will need to see if chemotherapy will be suspended for now, as this could impact whether or not a care home can take pt. CM asked about palliative, Lizy states pt had an appointment w/[facility] on Tuesday at 11am for palliative care. MARY JO suggested she be present for the meeting, Lizy planned to call to see if they can move the appointment to 11:30 so she can attend meeting as well. MARY JO did print the list of nursing homes that take [place], however Lizy has left. MARY JO will give the list to Lizy when she returns. MARY JO will continue to follow. FLORA Jay, STOCK TRANSFER CLERK
[2018-06-21] MEDS: guaiFENesin 1,200 MG Tablet 1200 MG PO ×2 (16:45→21:58)
[2018-06-21] MEDS: Na Biphos/Potassium Phosphate PACKET 1 PACKET PO ×2 (16:45→21:58)
[2018-06-22] VITALS (21 sets, daily range): BP systolic 77–103; BP diastolic 32–54; PULSE 99–117; RESP 23–33; TEMP 36.2–36.9; O2SAT 93–98
[2018-06-22 05:05] LABS: Anion Gap 13 (5-15); BUN 35 mg/dL (7-18); BUN/Creat Ratio 24.1 RATIO (10-20); Calcium,Total 7.5 mg/dL (8.5-10.1); Chloride 105 mmol/L (98-107); Creatinine, Serum 1.45 mg/dL (0.70-1.30); EST Glomerular Filtration Rate 52 mL/min (>60); Est Glom Filt Rate - Afr Amer 63 mL/min (>60); Estimated Creatinine Clearance 48.04 ml/min; Glucose 61 mg/dL (74-106); Potassium 3.6 mmol/L (3.5-5.1); Sodium Level 136 mmol/L (136-145)
[2018-06-22 05:12] LABS: Hematocrit 25.6 % (40-54); Hemoglobin 8.2 g/dl (13.0-16.5); Mean Corpuscular Hgb 29.8 pg (27.0-32.0); Mean Corpuscular Volume 93.1 fL (80-94); Mean Platelet Vol. 9.7 fl (6.2-12.0); Platelet Count 113 K/mm3 (150-450); RBC Distribution Width CV 17.3 % (11.6-14.6); Red Blood Count 2.75 M/mm3 (4.6-6.2)
[2018-06-22 05:17] LABS: Differential Indicated MANUAL DIFF; POSITIVE COUNT YES; POSITIVE DIFFERENTIAL NO; POSITIVE MORPHOLOGY YES
[2018-06-22 05:19] LABS: Phosphorus 3.3 mg/dL (2.5-4.9)
[2018-06-22 05:52] LABS: Basophil 1 % (0-1); Lymphocyte 10 % (19-41); Metamyelocyte 3 % (0-1); Monocyte 7 % (0-10); Myelocyte 1 (0-0); Neutrophil-Band 3 % (0-5); Neutrophil-Segmented 75 % (47-70); Platelet Estimate ADEQUATE (ADEQ); Red Cell Morphology NORM C+C NORMAL (NORM C&C); Total Cells Counted 100 (MANUAL DIFF); Toxic Granulation 2+
[2018-06-22 05:53] LABS: Absolute Neutrophil Count 5.5 X10^3/uL (2.0-7.7); Neutrophil # 5.46 X10^3/uL (2.7-7.7)
[2018-06-22] MEDS: Piperacil/Tazobactam 3.375 GM/50 ML ML IV ×2 (06:05→13:42)
[2018-06-22] MEDS: CHLORHEXIDINE GLUC 2% CLOTH 1 EACH TOWELETTE TOPICAL (06:47)
[2018-06-22] MEDS: 0.9% Normal Saline 1,000 ML 999 ML IV (06:47)
--- NOTE | 2018-06-22 07:07 | PCM.PN.INT ---
Subjective: The patient was seen and examined at the bedside this morning. Events from the last 24 hours have been reviewed. The patient is currently afebrile with tenuous blood pressure parameters. Oxygen saturations remain stable on room air. Hemoglobin is stable this morning at 8.2 g/dL. The patient's creatinine did worsen this morning to 1.45. The patient is currently overall net +5.3 L for the admission. Nursing staff did report that the patient's intake has been exceedingly poor over the last 24 hours. The patient denies the presence of abdominal pain, nausea or vomiting. He denies the presence of shortness of breath or chest pain. Objective: The patient's most recent lab work, culture data and imaging studies have all been personally reviewed. Respiratory viral panel was negative. Strep and urine Legionella antigens were negative. Blood cultures are pending. General: Alert, Cooperative, No apparent distress, - - Chronically ill in appearance. HEENT: Atraumatic, PERRLA, Normocephalic, - - Right mandibular soft tissue fullness Oral: No Gingival or Mucosal Lesions/ Ulcerations Neck: Supple, No Nodes, Trachea Midline Lungs: No rhonchi, No wheeze, No rales, Diminished Cardiovascular: Normal S1, Normal S2, No murmurs, Tachycardic Abdomen: Bowel Sounds Present, Soft, Non Tender Extremities: No clubbing, No cyanosis, No edema Skin: - - No significant change from previous. Musculoskeletal: No Tenderness to Palpation of Joints or Extremities Lymphatic: No Cervical, Supraclavicular, or Inguinal Adenopathy Neurological: Cranial nerves II-XII grossly intact, Neuro grossly intact Psych/Mental Status: Flat Affect Vital Signs Temp Pulse Resp BP Pulse Ox 98.1 F 104 H 25 H 89/41 L 95 06/22/18 04:00 06/22/18 06:00 06/22/18 06:00 06/22/18 06:00 06/22/18 06:00 Oxygen Delivery Method Room Air Weight: 142 lb 10.225 oz Body Mass Index (BMI) 20.9 Intake and Output for Last 24 Hours 06/20/18 06/21/18 06/22/18 23:59 23:59 23:59 Intake Total 5984 / 5984 362 / 362 Output Total 975 / 975 Balance 5009 / 5009 362 / 362 Labs (Last 48 Hours) 06/20/18 06/20/18 06/20/18 19:20 19:20 19:20 WBC 7.8 RBC 3.62 L Hgb 10.8 L Hct 33.7 L MCV 93.1 MCH 29.8 MCHC 32.0 RDW 17.4 H RDW Differential 59.2 H Plt Count 122 L MPV 9.9 Neut % (Auto) Not Reportable Absolute Neuts (auto) 5.6 Absolute Lymphs (auto) 1.71 Total Counted 100 Neutrophils % (Manual) 59 Band Neutrophils % 13 H Lymphocytes % (Manual) 22 Monocytes % (Manual) 3 Eosinophils % (Manual) Basophils % (Manual) Metamyelocytes % 2 H Myelocytes % 1 H Diff Path Review May foll Toxic Granulation Platelet Estimate SLT DEC RBC Morphology Anisocytosis RARE Macrocytosis RARE Sodium 132 L Potassium 4.2 Chloride 99 Carbon Dioxide 23.0 Anion Gap 10 BUN 32 H Creatinine 1.36 H Estim Creat Clear Calc 48.78 Est GFR (MDRD) Af Amer 68 Est GFR (MDRD) Non-Af 56 L BUN/Creatinine Ratio 23.5 H Glucose 104 Lactic Acid 3.7 H Calcium 9.0 Phosphorus Magnesium Urine Color Urine Clarity Urine pH Ur Specific [place] Urine Protein Urine Glucose (UA) Urine Ketones Urine Occult Blood Urine Nitrite Urine Bilirubin Urine Urobilinogen Ur Leukocyte Esterase Urine RBC Urine WBC Ur Squamous Epith Cells Amorphous Sediment Urine Bacteria Urine Mucus MRSA (PCR) 06/20/18 06/20/18 06/20/18 19:20 22:23 23:47 WBC RBC Hgb Hct MCV MCH MCHC RDW RDW Differential Plt Count MPV Neut % (Auto) Absolute Neuts (auto) Absolute Lymphs (auto) Total Counted Neutrophils % (Manual) Band Neutrophils % Lymphocytes % (Manual) Monocytes % (Manual) Eosinophils % (Manual) Basophils % (Manual) Metamyelocytes % Myelocytes % Diff Path Review Toxic Granulation Platelet Estimate RBC Morphology Anisocytosis Macrocytosis Sodium Potassium Chloride Carbon Dioxide Anion Gap BUN Creatinine Estim Creat Clear Calc Est GFR (MDRD) Af Amer Est GFR (MDRD) Non-Af BUN/Creatinine Ratio Glucose Lactic Acid 2.2 H Calcium Phosphorus 1.7 L Magnesium 2.0 Urine Color Yellow Urine Clarity Clear Urine pH 5.0 Ur Specific [place] 1.015 Urine Protein 30 H Urine Glucose (UA) Normal Urine Ketones 5 H Urine Occult Blood 10 H Urine Nitrite Negative Urine Bilirubin 1 H Urine Urobilinogen 1 H Ur Leukocyte Esterase 25 H Urine RBC 0 SEEN Urine WBC 0-5 SEEN Ur Squamous Epith Cells 0 SEEN Amorphous Sediment 1+ Urine Bacteria 0 SEEN Urine Mucus 0 SEEN MRSA (PCR) 06/21/18 06/21/18 06/21/18 01:10 03:02 04:50 WBC 5.6 RBC 2.72 L Hgb 8.2 L Hct 25.4 L MCV 93.4 MCH 30.1 MCHC 32.3 RDW 17.4 H RDW Differential 56.6 H Plt Count 97 L MPV 9.8 Neut % (Auto) Not Reportable Absolute Neuts (auto) 4.3 Absolute Lymphs (auto) 0.90 Total Counted 100 Neutrophils % (Manual) 73 H Band Neutrophils % 3 Lymphocytes % (Manual) 16 L Monocytes % (Manual) 3 Eosinophils % (Manual) 1 Basophils % (Manual) Metamyelocytes % 1 Myelocytes % 3 H Diff Path Review May foll Toxic Granulation 2+ Platelet Estimate ADEQUATE RBC Morphology NORM C+C Anisocytosis Macrocytosis Sodium Potassium Chloride Carbon Dioxide Anion Gap BUN Creatinine Estim Creat Clear Calc Est GFR (MDRD) Af Amer Est GFR (MDRD) Non-Af BUN/Creatinine Ratio Glucose Lactic Acid 1.7 Calcium Phosphorus Magnesium Urine Color Urine Clarity Urine pH Ur Specific [place] Urine Protein Urine Glucose (UA) Urine Ketones Urine Occult Blood Urine Nitrite Urine Bilirubin Urine Urobilinogen Ur Leukocyte Esterase Urine RBC Urine WBC Ur Squamous Epith Cells Amorphous Sediment Urine Bacteria Urine Mucus MRSA (PCR) Negative 06/21/18 06/22/18 06/22/18 04:50 04:40 04:40 WBC 7.0 RBC 2.75 L Hgb 8.2 L Hct 25.6 L MCV 93.1 MCH 29.8 MCHC 32.0 RDW 17.3 H RDW Differential 56.0 H Plt Count 113 L MPV 9.7 Neut % (Auto) Not Reportable Absolute Neuts (auto) 5.5 Absolute Lymphs (auto) 0.70 L Total Counted 100 Neutrophils % (Manual) 75 H Band Neutrophils % 3 Lymphocytes % (Manual) 10 L Monocytes % (Manual) 7 Eosinophils % (Manual) Basophils % (Manual) 1 Metamyelocytes % 3 H Myelocytes % 1 H Diff Path Review May foll Toxic Granulation 2+ Platelet Estimate ADEQUATE RBC Morphology NORM C+C Anisocytosis Macrocytosis Sodium 138 136 Potassium 3.7 3.6 Chloride 108 H 105 Carbon Dioxide 20.0 L 18.0 L Anion Gap 10 13 BUN 28 H 35 H Creatinine 0.93 1.45 H Estim Creat Clear Calc 74.90 48.04 Est GFR (MDRD) Af Amer 106 63 Est GFR (MDRD) Non-Af 87 52 L BUN/Creatinine Ratio 30.1 H 24.1 H Glucose 78 61 L Lactic Acid Calcium 7.4 L 7.5 L Phosphorus Magnesium Urine Color Urine Clarity Urine pH Ur Specific [place] Urine Protein Urine Glucose (UA) Urine Ketones Urine Occult Blood Urine Nitrite Urine Bilirubin Urine Urobilinogen Ur Leukocyte Esterase Urine RBC Urine WBC Ur Squamous Epith Cells Amorphous Sediment Urine Bacteria Urine Mucus MRSA (PCR) 06/22/18 04:40 WBC RBC Hgb Hct MCV MCH MCHC RDW RDW Differential Plt Count MPV Neut % (Auto) Absolute Neuts (auto) Absolute Lymphs (auto) Total Counted Neutrophils % (Manual) Band Neutrophils % Lymphocytes % (Manual) Monocytes % (Manual) Eosinophils % (Manual) Basophils % (Manual) Metamyelocytes % Myelocytes % Diff Path Review Toxic Granulation Platelet Estimate RBC Morphology Anisocytosis Macrocytosis Sodium Potassium Chloride Carbon Dioxide Anion Gap BUN Creatinine Estim Creat Clear Calc Est GFR (MDRD) Af Amer Est GFR (MDRD) Non-Af BUN/Creatinine Ratio Glucose Lactic Acid Calcium Phosphorus 3.3 Magnesium Urine Color Urine Clarity Urine pH Ur Specific [place] Urine Protein Urine Glucose (UA) Urine Ketones Urine Occult Blood Urine Nitrite Urine Bilirubin Urine Urobilinogen Ur Leukocyte Esterase Urine RBC Urine WBC Ur Squamous Epith Cells Amorphous Sediment Urine Bacteria Urine Mucus MRSA (PCR) Microbiology 06/21/18 00:25 Mucosa - Nose Respiratory Panel (PCR) - Final 06/20/18 23:50 Urine Catheter - Muhammad Legionella Antigen - Final 06/20/18 23:50 Urine Catheter - Muhammad Streptococcus pneumoniae Antigen (M - Final Clinical Impression(s) from Imaging Studies Chest X-Ray 06/20/18 19:30 IMPRESSION: Bibasilar opacities likely represent atelectasis, although early consolidations cannot be excluded. There is no obvious effusion. There are indeterminate nodular opacities in the left lung adjacent to the hilum, in the mid left lung, and possibly in the right upper lung. A CT of the chest is recommended for further characterization. Electronically Signed: Romelia Castellon MD at 20:05 EDT Tel Direct: [phone], Service support , Chest X-Ray 06/20/18 23:50 IMPRESSION: Central line is in adequate position. Worsening right basilar atelectasis and infiltration. Electronically Signed: Jori Case MD at 0:26 EDT , Service support , Medical Necessity - Tobacco Use Smoking Status: Former smoker Tobacco Use: Non-smoker Assessment/Plan All Active Problems HCAP (healthcare-associated pneumonia) (Acute) Septic shock (Acute) RECOMMENDATIONS: 1. Supplemental IV fluids will likely need to be continued, given the patient's poor p.o. intake. 2. We will ask that the patient be reevaluated by physical therapy today. 3. We will discuss goals of care with the patient and his medical POA this morning. 4. Continue antibiotics as ordered. IMPRESSIONS: 1. Severe sepsis with concern for HCAP The patient's presenting hypotension was likely secondary to intravascular volume depletion, which responded to volume expansion. No vasopressor support was required. The patient is clinically stable with improved hemodynamics. Given that the patient's MRSA screen was negative, vancomycin was discontinued. We will continue with Zosyn. Supplemental IV fluids may need to be continued, given the patient's poor p.o. intake. 2. Acute kidney injury, likely secondary to prerenal azotemia The patient's creatinine has normalized, following volume expansion. Urine output remains appropriate. No indication for renal replacement therapy. 3. Normocytic anemia Continue to monitor blood counts daily. Transfuse if hemoglobin drops below 7 g/dL. 4. Metastatic renal cell carcinoma/GERD/chronic pain syndrome Complicates care, management, recovery and prognosis. Likely okay to continue home medications at this time. This note was generated with EVOF[employer]ation software. It may contain incorrect words, spelling, and punctuation that were not noted in checking the note before signing. UPDATE: I spoke with the patient and his medical POA this morning. The patient has poor long-term prognosis from a oncologic standpoint. He has been intolerant of chemotherapy and is severely debilitated at this time. It is highly unlikely that he would be a candidate for any additional chemotherapeutic interventions in the future. He is currently active with palliative care. With the assistance of case management and social work, we will breach the topic of hospice referral with the patient today. Code Visit Inpatient E&M: 25957 Subs Hosp L3
[2018-06-22] MEDS: 0.9% NaCl Peripheral Flush Adult/Peds IV ×2 (08:41→10:55)
[2018-06-22] MEDS: Ondansetron 4 MG/2 ML Vial IV (08:41)
--- NOTE | 2018-06-22 09:16 | PCM.PN.HOSP ---
Patient Problems: Active and Suspected Problems HCAP (healthcare-associated pneumonia) (Acute) Septic shock (Acute) Subjective: Feels ok, did have episodes of hypotension last night and was placed temporarily on levophed and given a NS bolus this am. Vitals/I&O's: Vital Signs Temp Pulse Resp BP Pulse Ox 98.1 F 108 H 24 H 92/48 L 98 06/22/18 08:30 06/22/18 09:00 06/22/18 09:00 06/22/18 09:00 06/22/18 09:00 Oxygen Delivery Method Room Air Weight: 142 lb 10.225 oz Body Mass Index (BMI) 20.9 Intake and Output for Last 24 Hours 06/20/18 06/21/18 06/22/18 23:59 23:59 23:59 Intake Total 5984 / 5984 362 / 362 Output Total 975 / 975 Balance 5009 / 5009 362 / 362 General: Alert, Oriented x3, Cooperative, No apparent distress HEENT: Atraumatic, EOMI, Normocephalic Oral: Moist Mucosa Neck: Supple, No JVD Lungs: Clear to auscultation, Normal air movement, No rhonchi, No wheeze, No rales, Diminished - left greater than right Cardiovascular: Regular Rhythm, Normal S1, Normal S2, No murmurs, Tachycardic, Abdomen: Soft, Non Tender, Non-Distended, No Hepato-splenomegaly Extremities: No edema, Capillary Refill Less than 3 Seconds Skin: No rashes, No breakdown Neurological: Neuro grossly intact, Sensory exam intact to light touch and pain Microbiology Past 72 Hours 06/21/18 00:25 Mucosa - Nose Respiratory Panel (PCR) - Final 06/20/18 23:50 Urine Catheter - Muhammad Legionella Antigen - Final 06/20/18 23:50 Urine Catheter - Muhammad Streptococcus pneumoniae Antigen (M - Final Laboratory Results 06/22/18 04:40: WBC 7.0, RBC 2.75 L, Hgb 8.2 L, Hct 25.6 L, MCV 93.1, MCH 29.8, MCHC 32.0, RDW 17.3 H, RDW Differential 56.0 H, Plt Count 113 L, MPV 9.7, Neut % (Auto) Not Reportable, Absolute Neuts (auto) 5.5, Absolute Lymphs (auto) 0.70 L, Total Counted 100, Neutrophils % (Manual) 75 H, Band Neutrophils % 3, Lymphocytes % (Manual) 10 L, Monocytes % (Manual) 7, Basophils % (Manual) 1, Metamyelocytes % 3 H, Myelocytes % 1 H, Diff Path Review May foll, Toxic Granulation 2+, Platelet Estimate ADEQUATE, RBC Morphology NORM C+C 06/22/18 04:40: Sodium 136, Potassium 3.6, Chloride 105, Carbon Dioxide 18.0 L, Anion Gap 13, BUN 35 H, Creatinine 1.45 H, Estim Creat Clear Calc 48.04, Est GFR (MDRD) Af Amer 63, Est GFR (MDRD) Non-Af 52 L, BUN/Creatinine Ratio 24.1 H, Glucose 61 L, Calcium 7.5 L 06/22/18 04:40: Phosphorus 3.3 Current Medications Acetaminophen (Tylenol) 650 mg PO Q4H PRN PRN PRN Reason: FEVER Acetaminophen (Tylenol) 650 mg PO Q6H PRN PRN PRN Reason: Mild Pain (scale 0-3)/T>100.7 Al Hydroxide/Mg Hydroxide (Mylanta Ii) 30 ml PO Q6H PRN PRN PRN Reason: Gastric burning Albuterol Sulfate (Ventolin Aerosols) 2.5 mg INHALATION Q2H PRN PRN PRN Reason: SHORTNESS OF BREATH Chlorhexidine Gluconate () 1 each TOPICAL DAILY [facility] Last Admin: 06/22/18 06:47 Dose: 1 each Enoxaparin Sodium (Lovenox) 40 mg SC DAILY@1000 [facility] Last Admin: 06/21/18 13:06 Dose: 40 mg Guaifenesin (Mucinex) 1,200 mg PO BID [facility] Last Admin: 06/21/18 21:58 Dose: 1,200 mg Piperacillin Sod/Tazobactam Sod (Zosyn) 3.375 gm in 50 mls @ 12.5 mls/hr IV Q8 [facility] Last Admin: 06/22/18 06:05 Dose: 12.5 mls/hr Sodium Chloride () 250 mls @ 15 mls/hr IV .[id number] PRN PRN Reason: SALINE FLUSH Last Admin: 06/21/18 03:08 Dose: 15 mls/hr Norepinephrine Bitartrate 8 mg (/ Dextrose) 258 mls @ 9.68 mls/hr IV .[id number] [facility] Influenza Virus Vaccine Quadrival (Fluarix/Fluzone) 0.5 ml IM .ONCE ONE Stop: 06/22/18 10:01 Magnesium Hydroxide (Milk Of Magnesia) 30 ml PO DAILY PRN PRN Reason: Constipation Mirtazapine (Remeron) 15 mg PO QHS PRN PRN PRN Reason: SLEEP Nutritional Formula (Lactose Free) (Ensure Enlive) 120 ml PO 4X/DAY [facility] Last Admin: 06/21/18 21:56 Dose: 120 ml Ondansetron HCl (Zofran) 4 mg IV Q8H PRN PRN PRN Reason: NAUSEA Last Admin: 06/22/18 08:41 Dose: 4 mg Oxycodone HCl (Oxyir) 5 mg PO Q4H PRN PRN PRN Reason: PAIN Pantoprazole Sodium (Protonix) 40 mg PO BID [facility] Last Admin: 06/21/18 21:58 Dose: 40 mg Potassium Phos/Sodium Phos (Neutra-Phos Packet) 1 packet PO 4X/DAY [facility] Last Admin: 06/21/18 21:58 Dose: 1 packet Promethazine HCl (Phenergan) 12.5 mg IV Q6H PRN PRN PRN Reason: NAUSEA/VOMITING Sodium Chloride () 5 - 30 ml IV UD PRN PRN Reason: SALINE FLUSH Last Admin: 06/22/18 08:41 Dose: 10 ml Medical Necessity - Tobacco Use Smoking Status: Former smoker Tobacco Use: Non-smoker Assessment/Plan All Active Problems HCAP (healthcare-associated pneumonia) (Acute) Septic shock (Acute) 1. Septic shock 2/2 to possible HCAP/JESSICA - MRSA screen is negative - c/w zosyn, given his immunocompromised status, if no improvement may need to add secondary coverage for pseudomonas and possibly even fungal - Was on Levophed overnight and then bolused this am - Cr worsened from .93 to 1.45 today, will continue to monitor - I/O 5984/975, which is consistent with his weight gain - blood Cx pending 2. Normocytic Anemia - H/H 8.2 today likely dilutional - will continue to monitor 3. Stage 4 renal cell carcinoma - Mets to the lung, brain and bone - follow at the main campus and had chemo 3 weeks ago and has chemo again in 3 days 4. GERD - Stable - c/w PPI 5. Chronic pain - Stable at the moment - c/w home pain management 6. Insomnia - Can c/w home PRN regimen DVT: SCD, Lovenox Code Visit Inpatient E&M: 64917 Subs Hosp L2
--- NOTE | 2018-06-22 09:25 | PN_ITS ---
Patient Problems: Active and Suspected Problems HCAP (healthcare-associated pneumonia) (Acute) Septic shock (Acute) Subjective: Feels ok, did have episodes of hypotension last night and was placed temporarily on levophed and given a NS bolus this am. Vitals/I&O's: Vital Signs Temp Pulse Resp BP Pulse Ox 98.1 F 108 H 24 H 92/48 L 98 06/22/18 08:30 06/22/18 09:00 06/22/18 09:00 06/22/18 09:00 06/22/18 09:00 Oxygen Delivery Method Room Air Weight: 142 lb 10.225 oz Body Mass Index (BMI) 20.9 Intake and Output for Last 24 Hours 06/20/18 06/21/18 06/22/18 23:59 23:59 23:59 Intake Total 5984 / 5984 362 / 362 Output Total 975 / 975 Balance 5009 / 5009 362 / 362 General: Alert, Oriented x3, Cooperative, No apparent distress HEENT: Atraumatic, EOMI, Normocephalic Oral: Moist Mucosa Neck: Supple, No JVD Lungs: Clear to auscultation, Normal air movement, No rhonchi, No wheeze, No rales, Diminished - left greater than right Cardiovascular: Regular Rhythm, Normal S1, Normal S2, No murmurs, Tachycardic, Abdomen: Soft, Non Tender, Non-Distended, No Hepato-splenomegaly Extremities: No edema, Capillary Refill Less than 3 Seconds Skin: No rashes, No breakdown Neurological: Neuro grossly intact, Sensory exam intact to light touch and pain Microbiology Past 72 Hours 06/21/18 00:25 Mucosa - Nose Respiratory Panel (PCR) - Final 06/20/18 23:50 Urine Catheter - Muhammad Legionella Antigen - Final 06/20/18 23:50 Urine Catheter - Muhammad Streptococcus pneumoniae Antigen (M - Final Laboratory Results 06/22/18 04:40: WBC 7.0, RBC 2.75 L, Hgb 8.2 L, Hct 25.6 L, MCV 93.1, MCH 29.8, MCHC 32.0, RDW 17.3 H, RDW Differential 56.0 H, Plt Count 113 L, MPV 9.7, Neut % (Auto) Not Reportable, Absolute Neuts (auto) 5.5, Absolute Lymphs (auto) 0.70 L, Total Counted 100, Neutrophils % (Manual) 75 H, Band Neutrophils % 3, Lymphocytes % (Manual) 10 L, Monocytes % (Manual) 7, Basophils % (Manual) 1, Metamyelocytes % 3 H, Myelocytes % 1 H, Diff Path Review May foll, Toxic Granulation 2+, Platelet Estimate ADEQUATE, RBC Morphology NORM C+C 06/22/18 04:40: Sodium 136, Potassium 3.6, Chloride 105, Carbon Dioxide 18.0 L, Anion Gap 13, BUN 35 H, Creatinine 1.45 H, Estim Creat Clear Calc 48.04, Est GFR (MDRD) Af Amer 63, Est GFR (MDRD) Non-Af 52 L, BUN/Creatinine Ratio 24.1 H, Glucose 61 L, Calcium 7.5 L 06/22/18 04:40: Phosphorus 3.3 Current Medications Acetaminophen (Tylenol) 650 mg PO Q4H PRN PRN PRN Reason: FEVER Acetaminophen (Tylenol) 650 mg PO Q6H PRN PRN PRN Reason: Mild Pain (scale 0-3)/T>100.7 Al Hydroxide/Mg Hydroxide (Mylanta Ii) 30 ml PO Q6H PRN PRN PRN Reason: Gastric burning Albuterol Sulfate (Ventolin Aerosols) 2.5 mg INHALATION Q2H PRN PRN PRN Reason: SHORTNESS OF BREATH Chlorhexidine Gluconate () 1 each TOPICAL DAILY [facility] Last Admin: 06/22/18 06:47 Dose: 1 each Enoxaparin Sodium (Lovenox) 40 mg SC DAILY@1000 [facility] Last Admin: 06/21/18 13:06 Dose: 40 mg Guaifenesin (Mucinex) 1,200 mg PO BID [facility] Last Admin: 06/21/18 21:58 Dose: 1,200 mg Piperacillin Sod/Tazobactam Sod (Zosyn) 3.375 gm in 50 mls @ 12.5 mls/hr IV Q8 [facility] Last Admin: 06/22/18 06:05 Dose: 12.5 mls/hr Sodium Chloride () 250 mls @ 15 mls/hr IV .[id number] PRN PRN Reason: SALINE FLUSH Last Admin: 06/21/18 03:08 Dose: 15 mls/hr Norepinephrine Bitartrate 8 mg (/ Dextrose) 258 mls @ 9.68 mls/hr IV .[id number] [facility] Influenza Virus Vaccine Quadrival (Fluarix/Fluzone) 0.5 ml IM .ONCE ONE Stop: 06/22/18 10:01 Magnesium Hydroxide (Milk Of Magnesia) 30 ml PO DAILY PRN PRN Reason: Constipation Mirtazapine (Remeron) 15 mg PO QHS PRN PRN PRN Reason: SLEEP Nutritional Formula (Lactose Free) (Ensure Enlive) 120 ml PO 4X/DAY [facility] Last Admin: 06/21/18 21:56 Dose: 120 ml Ondansetron HCl (Zofran) 4 mg IV Q8H PRN PRN PRN Reason: NAUSEA Last Admin: 06/22/18 08:41 Dose: 4 mg Oxycodone HCl (Oxyir) 5 mg PO Q4H PRN PRN PRN Reason: PAIN Pantoprazole Sodium (Protonix) 40 mg PO BID [facility] Last Admin: 06/21/18 21:58 Dose: 40 mg Potassium Phos/Sodium Phos (Neutra-Phos Packet) 1 packet PO 4X/DAY [facility] Last Admin: 06/21/18 21:58 Dose: 1 packet Promethazine HCl (Phenergan) 12.5 mg IV Q6H PRN PRN PRN Reason: NAUSEA/VOMITING Sodium Chloride () 5 - 30 ml IV UD PRN PRN Reason: SALINE FLUSH Last Admin: 06/22/18 08:41 Dose: 10 ml Medical Necessity - Tobacco Use Smoking Status: Former smoker Tobacco Use: Non-smoker Assessment/Plan All Active Problems HCAP (healthcare-associated pneumonia) (Acute) Septic shock (Acute) 1. Septic shock 2/2 to possible HCAP/JESSICA - MRSA screen is negative - c/w zosyn, given his immunocompromised status, if no improvement may need to add secondary coverage for pseudomonas and possibly even fungal - Was on Levophed overnight and then bolused this am - Cr worsened from .93 to 1.45 today, will continue to monitor - I/O 5984/975, which is consistent with his weight gain - blood Cx pending 2. Normocytic Anemia - H/H 8.2 today likely dilutional - will continue to monitor 3. Stage 4 renal cell carcinoma - Mets to the lung, brain and bone - follow at the main campus and had chemo 3 weeks ago and has chemo again in 3 days 4. GERD - Stable - c/w PPI 5. Chronic pain - Stable at the moment - c/w home pain management 6. Insomnia - Can c/w home PRN regimen DVT: SCD, Lovenox Code Visit Inpatient E&M: 36278 Subs Hosp L2
--- NOTE | 2018-06-22 10:37 | CASEMGMT ---
Addendum entered by Rachel Moreno 06/22/18 12:27: Hospice will be here at 1:30pm to meet w/pt and Lizy. FLORA Jay, VIOLIN TEACHER Original Note: SW spoke w/Lizy, pt's POA(papers were brought in, placed on chart) with Dr. Allison in the ICU waiting room. Dr. Allison spoke w/Lizy about hospice, Lizy is open to this, she thinks pt will be open to it as well. Lizy does not feel she would be able to manage caring for pt at home at this time however. SW did give Lizy list of SNF's that take [place], also explained that hospice will review all of the options for hospice including the inpt unit if he would qualify, hospice in a [place] [facility], or home w/hospice. SW spoke w/pt in room in regard to hospice, Lizy present. Pt is open to speaking w/hospice about options. Pt states if treatment is no longer an option, he is open to hospice. SW explained will call [facility] and see if they can come today when Lizy is available. SW called [facility], spoke w/Sarina, referral faxed, and Sarina will call Lizy to set up a time. Also, RN requested records from pt's oncologist. SW will continue to follow for any additional discharge and supportive needs. FLORA Jay, VIOLIN TEACHER
--- NOTE | 2018-06-22 10:49 | NURSING ---
Standing orthos 77 over palp
[2018-06-22] MEDS: Pantoprazole Sodium 40 MG Tablet PO (10:54)
[2018-06-22] MEDS: proMETHazine 25 MG/ML Syringe 12.5 MG IV (10:54)
[2018-06-22] MEDS: Enoxaparin 40 MG/0.4 ML Syringe SC (10:54)
[2018-06-22 13:24] LABS: Pathologist Review Reviewed
[2018-06-22 13:26] LABS: Pathologist Review Reviewed
[2018-06-22 13:33] LABS: Pathologist Review Reviewed
[2018-06-22] MEDS: oxyCODONE 5 MG Tablet PO (13:39)
--- NOTE | 2018-06-22 15:05 | NURSING ---
Sarina RN given report at Hospice
--- NOTE | 2018-06-22 15:22 | PCM.DC.SUM ---
Discharge Date and Diagnosis - Problem List Patient Problems: Active and Suspected Problems HCAP (healthcare-associated pneumonia) (Acute) Septic shock (Acute) Date of Admission: 06/20/18 Date of Discharge: 06/22/18 - Primary Discharge Diagnosis Active and Suspected Problems HCAP (healthcare-associated pneumonia) (Acute) Septic shock (Acute) - Secondary Discharge Diagnosis Chronic Problems Metastatic renal cell carcinoma (Chronic) GERD (gastroesophageal reflux disease) (Chronic) Chronic pain syndrome (Chronic) Former tobacco use (Chronic) Insomnia (Chronic) Anemia (Chronic) Hospital Course and Treatment Imaging Results: CXR: IMPRESSION: Bibasilar opacities likely represent atelectasis, although early consolidations cannot be excluded. There is no obvious effusion. There are indeterminate nodular opacities in the left lung adjacent to the hilum, in the mid left lung, and possibly in the right upper lung. A CT of the chest is recommended for further characterization. 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 Operations: None Procedures: Central line placement Summary of Care Provided: Per HPI: The patient is a 62 y/o M w/ PMHx: GERD, Insomnia, Chronic Pain Syndrome, Former Tobacco use who presents to the [facility] ED on 06/20/18 with history of Stage IV metastatic Renal Cell Carcinoma following w/ Oncology at [facility] on chemotherapy, last given 3 weeks prior w/ planned upcoming regimen, GERD, Insomnia, Former Tobacco Use, Chronic Pain Syndrome who presents to [facility] on 06/21/18 with history of progressively worsening dyspnea, weakness, malaise, non-productive cough x 2 days. In the ED work-up included T 97.5, heart rate 136, BP 92/38, respiratory rate 18--> 29, 96% on room air, CBC with WBC 7.8, hgb 10.8 (05/04/18 Hgb 13.8-->05/12/18 Hgb 10.7), platelet 122 with left shift, BMP with sodium 132, BUN/creatinine 32/1.36 (baseline Cr 0.7-0.9), glucose 104, lactic acid 3.7, blood culture x2 obtained per ED CXR w/ bibasilar opacities with indeterminate nodular opacities in the left lung adjacent to the hilum in the mid left lung and possibly in the right upper lung. In the ED patient administered normal saline, IV famotidine as well as IV Rocephin. In the ED despite being administered 3L NS (30 mg/kg sepsis bolus) he continued to have MAP < 65. Discussed with ED physician and R SC central line placed for possible pressor needs and patient transitioned to the ICU. Hospital Course: 1. Septic shock 2/2 to possible HCAP/JESSICA/Normocytic anemia/Stage 4 renal cell carcinoma - He was admitted and started on vanc and zosyn. His MRSA screen was negative so his vanc was discontinued. He had improved yesterday with fluids, abx and his JESSICA had resolved. However, overnight he needed levophed and another fluid bolus and his renal function had deteriorated once again. During the day today he decided to go home with hospice. He states that his family is on-board and that he has excellent support at home. He will be discharged today to the hospice facility. 2. His other home diagnoses were evaluated and continued where appropriate Patient Problems: Active and Suspected Problems HCAP (healthcare-associated pneumonia) (Acute) Septic shock (Acute) - Physical Exam Vital Signs Temp Pulse Resp BP Pulse Ox 97.1 F L 109 H 32 H 78/39 L 96 06/22/18 11:00 06/22/18 14:00 06/22/18 14:00 06/22/18 14:00 06/22/18 14:00 Oxygen Delivery Method Room Air Weight: 142 lb 10.225 oz Body Mass Index (BMI) 20.9 Orthostatic Vital Signs Start: 06/22/18 10:41 Freq: q24h Status: Active Protocol: Activity Type Activity Date Activity User E-Sign Co-Sign Detail Recorded Client Recorded Date Recorded By Document 06/22/18 10:41 [facility] [id number] 06/22/18 10:51 LR 06/22/18 10:41 Orthostatic Vitals Sitting -Blood Pressure (90/60-120/80) 103/44 L -Extremity Use Left Arm -Pulse Rate (60-100) 117 H Lying -Blood Pressure (90/60-120/80) 89/41 L -Extremity Use Left Arm -Pulse Rate (60-100) 108 H 06/22/18 10:49 Nursing Note by Leonel Puente Standing orthos 77 over palp Initialized on 06/22/18 10:49 - END OF NOTE Intake and Output for Last 24 Hours 06/20/18 06/21/1806/22/18 23:59 23:59 23:59 Intake Total 5984 / 5984 1717 / 1717 Output Total 975 / 975 Balance 5009 / 5009 1717 / 1717 Microbiology Past 72 Hours 06/21/18 00:25 Respiratory Panel (PCR) - Final Mucosa - Nose 06/20/18 23:50 Legionella Antigen - Final Urine Catheter - Muhammad 06/20/18 23:50 Streptococcus pneumoniae Antigen (M - Final Urine Catheter - Muhammad Laboratory Tests Past 24 Hrs 06/20/18 06/21/18 06/22/18 19:20 04:50 04:40 WBC 7.0 RBC 2.75 L Hgb 8.2 L Hct 25.6 L MCV 93.1 MCH 29.8 MCHC 32.0 RDW 17.3 H RDW Differential 56.0 H Plt Count 113 L MPV 9.7 Neut % (Auto) Not Reportable Absolute Neuts (auto) 5.5 Absolute Lymphs (auto) 0.70 L Total Counted 100 Neutrophils % (Manual) 75 H Band Neutrophils % 3 Lymphocytes % (Manual) 10 L Monocytes % (Manual) 7 Basophils % (Manual) 1 Metamyelocytes % 3 H Myelocytes % 1 H Diff Path Review Reviewed Reviewed Reviewed Toxic Granulation 2+ Platelet Estimate ADEQUATE RBC Morphology NORM C+C Sodium Potassium Chloride Carbon Dioxide Anion Gap BUN Creatinine Estim Creat Clear Calc Est GFR (MDRD) Af Amer Est GFR (MDRD) Non-Af BUN/Creatinine Ratio Glucose Calcium Phosphorus 06/22/18 06/22/18 04:40 04:40 WBC RBC Hgb Hct MCV MCH MCHC RDW RDW Differential Plt Count MPV Neut % (Auto) Absolute Neuts (auto) Absolute Lymphs (auto) Total Counted Neutrophils % (Manual) Band Neutrophils % Lymphocytes % (Manual) Monocytes % (Manual) Basophils % (Manual) Metamyelocytes % Myelocytes % Diff Path Review Toxic Granulation Platelet Estimate RBC Morphology Sodium 136 Potassium 3.6 Chloride 105 Carbon Dioxide 18.0 L Anion Gap 13 BUN 35 H Creatinine 1.45 H Estim Creat Clear Calc 48.04 Est GFR (MDRD) Af Amer 63 Est GFR (MDRD) Non-Af 52 L BUN/Creatinine Ratio 24.1 H Glucose 61 L Calcium 7.5 L Phosphorus 3.3 Home Medications: Medications to take at Discharge Famotidine [Pepcid] 20 mg PO DAILY 05/04/18 Oxycodone HCl/Acetaminophen [Percocet 5-325] 1 tab PO Q4H PRN PRN 05/04/18 Mirtazapine [Remeron] 15 mg PO PRN PRN 05/12/18 Primary Care Physician: Care Physician,No Primary [Primary Care Provider] - Disposition: Hospice Medical Facility Minutes spent on discharge:: 35 Patient Condition:: Stable Medical Necessity - Tobacco Use Smoking Status: Former smoker Tobacco Use: Non-smoker Meaningful Use Info Meaningful Use Diagnoses (Choose all that apply): None applicable Code Visit Inpatient E&M: 18035 Disch Hosp
--- NOTE | 2018-06-22 16:12 | NURSING ---
Attempted to call Lizy Goncalves at number listed on file. The line rang busy after several attempts of calling. Called [facility]ospice [facility] and spoked to Jg. This RN asked Jg to inform Lizy on arrival that the pt's cell phone and senior technical analyst are at the nurses station in ICU. Will attempt calling Lizy again momentarily.
--- NOTE | 2018-06-22 16:52 | NURSING ---
Lizy Goncalves called back into unit at different number than listed ([phone]). Informed her that pt went to Hospice at 1550 and that he is probably at facility now. Also informed her that his cell phone is here at the nurses station. She verbalizes that she will probably be in tomorrow morning to pick up truck driver cell phone 06/23/18. Cell phone left at desk in bag with pt label on it.
== END 2018-06-22 15:50 | disposition hospice, inpatient (51) | DRG 720 ==
LOC: ED 19:16 → ICU 06-21 00:22
PROVIDERS: Admitting Provider Family Medicine; Emergency Provider Emergency Medicine; Visit Provider Family Medicine
DX: A41.9 Sepsis, unspecified organism (principal); R65.21 Severe sepsis with septic shock; N17.9 Acute kidney failure, unspecified; C64.9 Malignant neoplasm of unspecified kidney, except renal pelvis; C78.00 Secondary malignant neoplasm of unspecified lung; C79.51 Secondary malignant neoplasm of bone; C79.31 Secondary malignant neoplasm of brain; G47.00 Insomnia, unspecified; E43 Unspecified severe protein-calorie malnutrition; Z68.20 Body mass index [BMI] 20.0-20.9, adult; J18.9 Pneumonia, unspecified organism; Y95 Nosocomial condition; K21.9 Gastro-esophageal reflux disease without esophagitis; Z87.891 Personal history of nicotine dependence; G89.4 Chronic pain syndrome; D64.9 Anemia, unspecified
CPT/HCPCS: 36556; 51702; 71045; 71046; 80048; 81001; 83605; 83735; 84100; 85025; 87040; 87449; 87633; 87641; 93005; 94640; 94667; 94668; 97163; 97165; 97530; 97803; 99285; J7030; J7050; A4216; J2405; J3490